=== PATIENT | female | born 1950 | race Caucasian/White ===

== ENCOUNTER 2023-01-30 16:50 | Inpatient (IN) | payer MEDICARE, SELFPAY ==
[2023-01-30] VITALS (13 sets, daily range): BP systolic 120–162; BP diastolic 64–96; PULSE 73–87; RESP 17–32; TEMP 36.6–37.1; O2SAT 95–99; BMI 16.6; BMI 16.0
--- NOTE | 2023-01-30 17:13 | XR_ITS ---
The [address] [address] Patient Name: LAQUITA CASTRO MRN: [id number] date: 1950 Sex: F Assigned Patient Location: ER Current Patient Location: ER Accession/Order Number: [id number] Exam Date: 01/30/2023 17:18 Report Date: 01/30/2023 17:51 At the request of: ARTHUR MARTINEZ Procedure: XR chest 1V XR chest 1V CLINICAL: Shortness of breath COMPARISON: No prior studies are available. TECHNIQUE: PA and lateral chest radiographs were obtained. FINDINGS: Heart size is slightly enlarged. There are patchy airspace infiltrates present in the left lower lung, with blunting at the lateral left costophrenic sulcus, and relatively hyperdense opacification in the left hilum relative to the right side. No discernible pneumothorax. Right lung is well aerated, with slight blunting lateral right costophrenic sulcus. Osseous structures appear intact. IMPRESSION: Patchy airspace infiltrates left mid to lower lung suspicious for pneumonia. The left pulmonary hilum is asymmetrically dense relative to the right. This may represent reactive adenopathy, however left hilar mass is not excluded. Consider chest CT to exclude left hilar mass. Suspect small pleural effusions, left greater than right. Electronically authenticated by: ANAYELI LOBATO Date: 01/30/2023 17:51
--- NOTE | 2023-01-30 17:13 | ECG_ITS ---
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
--- NOTE | 2023-01-30 17:13 | PC.NURSE ---
pt presents to ED c/o SOB. pt states she has chronic sob d/t copd and wears 2 liters nasal cannula at all times. on arrival pt is on 3 liters and states she bumped it up d/t sob. pt also c/o cough and increased mucus as well as coughing up blood. also c/o fatigue and weakness and unable to eat or drink anything.
--- NOTE | 2023-01-30 17:17 | ED_ITS ---
HPI - SOB/Dyspnea General Chief Complaint: Shortness of Breath/Dyspnea Stated Complaint: Shortness of Breath, Coughing up blood Time Seen by Provider: 01/30/23 16:53 Source: family Mode of arrival: Wheelchair Limitations: no limitations History of Present Illness HPI Narrative: 72-year-old female who has chronic obstructive pulmonary disease and is on home oxygen presents for a week and a half history of weakness and difficulty breathing. She's been coughing up blood. She's been feeling more weak than typical and has been able to get up and walk around. Family increased her oxygen from 2 L to 3 L/m by nasal cannula last night. She has not had a known fever. States she quit smoking in 2014. Related Data Home Medications Medication Instructions Recorded Confirmed acetylcysteine 600 mg tablet (NAC) 600 mg PO DAILY 01/30/23 01/30/23 albuterol sulfate 90 mcg/actuation 2 puff inhalation Q6H PRN 01/30/23 01/30/23 aerosol inhaler shortness of breath or wheezing carvedilol 3.125 mg tablet 3.125 mg PO Q12H 01/30/23 01/30/23 diltiazem HCl 240 mg capsule,24 240 mg PO Q24H 01/30/23 01/30/23 hr,extended release folic acid 1 mg tablet 1 mg PO DAILY 01/30/23 01/30/23 glipizide 2.5 mg tablet, extended 2.5 mg PO DAILY 01/30/23 01/30/23 release 24 hr hydroxychloroquine 200 mg tablet 200 mg PO DAILY 01/30/23 01/30/23 losartan 50 mg tablet 50 mg PO DAILY 01/30/23 01/30/23 methotrexate sodium 2.5 mg tablet 15 mg PO .weekly 01/30/23 01/30/23 prasugrel 10 mg tablet 10 mg PO DAILY 01/30/23 01/30/23 prednisone 5 mg tablet 5 mg PO DAILY 01/30/23 01/30/23 rosuvastatin 20 mg tablet 20 mg PO DAILY 01/30/23 01/30/23 tiotropium bromide 2.5 2 puff inhalation Q24H 01/30/23 01/30/23 mcg/actuation mist for inhalation (Spiriva Respimat) tramadol 50 mg tablet 50 mg PO Q4H PRN pain 01/30/23 01/30/23 Allergies Allergy/AdvReac Type Severity Reaction Status Date / Time No Known Drug Allergies Allergy Verified 01/30/23 16:57 Review of Systems ROS Narrative A ten point review of systems is negative except as noted above. PFSH PFSH Social History Smoking status: Former smoker Exam Narrative Exam Narrative: Nurses note and vital signs reviewed and patient is not hypoxic. General: this to minutes of patient appears uncomfortable. She appears mildly dyspneic. She appears generally weak. Skin: Warm, dry, no pallor noted. There is no rash noted. Head: Normocephalic, atraumatic Eye: Normal conjunctiva, no drainage Ears, Nose, Mouth, and Throat: oral mucosa is moist. Nares patent. Cardiovascular: Regular Rate and Rhythm, not tachycardic Respiratory: she has difficulty taking in deep breaths. Breath sounds are equal. She has rhonchi. Back: non-tender GI: nontender Musculoskeletal: The patient has no evidence of calf tenderness, no pitting edema, symmetrical pulses noted bilaterally Neurological: A&O, normal speech Psychiatric: Cooperative Constitutional Vital Signs, click to edit/add: Last Vital Signs Temp 97.8 F 01/30/23 16:58 Pulse 73 01/30/23 18:02 Resp 32 H 01/30/23 16:58 BP 151/74 H 01/30/23 16:58 Pulse Ox 97 01/30/23 18:02 O2 Del Method Nasal Cannula 01/30/23 17:36 O2 Flow Rate 3 01/30/23 17:36 Course Vital Signs Vital signs: Vital Signs Temperature 97.8 F 01/30/23 16:58 Pulse Rate 76 01/30/23 16:58 Respiratory Rate 32 H 01/30/23 16:58 Blood Pressure 151/74 H 01/30/23 16:58 Pulse Oximetry 95 01/30/23 16:58 Oxygen Delivery Method Nasal Cannula 01/30/23 16:58 Oxygen Delivery Flow Rate 3 01/30/23 16:58 Temperature 97.8 F 01/30/23 16:58 Pulse Rate 73 01/30/23 18:02 Respiratory Rate 32 H 01/30/23 16:58 Blood Pressure 151/74 H 01/30/23 16:58 Pulse Oximetry 97 01/30/23 18:02 Oxygen Delivery Method Nasal Cannula 01/30/23 17:36 Oxygen Delivery Flow Rate 3 01/30/23 17:36 MDM - SOB/Dyspnea MDM Narrative Medical decision making narrative: pneumonia is identified. Blood cultures were obtained and then she was given IV antibiotic. She was also given IV steroids and aerosol treatments. She is being admitted. Differential Diagnosis Differential diagnosis: Likely acute exacerbation of chronic obstructive airways disease, congestive heart failure and community acquired pneumonia Lab Data Attestation: I reviewed the patient's lab results. Labs: Lab Results 01/30/23 01/30/23 Range/Units 17:05 17:40 WBC 13.1 H (4.0-11.0) 10^3/uL RBC 3.06 L (4.20-5.40) 10^6/uL Hgb 8.6 L (12.0-16.0) g/dL Hct 29.0 L (36.0-48.0) % MCV 94.8 (81.0-99.0) fL MCH 28.1 (26.7-34.0) pg MCHC 29.7 L (29.9-35.2) g/dL RDW 15.9 H (11.0-15.0) % Plt Count 483 H (150-450) 10^3/uL MPV 9.5 (9.5-13.5) fL Neut % (Auto) 89.3 H (43.0-75.0) % Lymph % (Auto) 1.9 L (20.5-60.0) % [place] % (Auto) 7.6 (1.7-12.0) % Eos % (Auto) 0.1 L (0.9-7.0) % Baso % (Auto) 0.1 L (0.2-2.0) % Neut # (Auto) 11.7 H (1.4-6.5) 10^3/uL Lymph # (Auto) 0.3 L (1.2-3.8) 10^3/uL [place] # (Auto) 1.0 H (0.3-0.8) 10^3/uL Eos # (Auto) 0.0 (0.0-0.7) 10^3/uL Baso # (Auto) 0.0 (0.0-0.1) 10^3/uL Abs Immat Gran (auto) 0.13 H (0.00-0.03) 10^3/uL Imm/Tot Granulo (auto) 1.0 H (0.0-0.5) % Sodium 135 L (136-145) mmol/L Potassium 4.6 (3.5-5.1) mmol/L Chloride 96 L (98-107) mmol/L Carbon Dioxide 37.7 H (21.0-32.0) mmol/L Anion Gap 5.9 BUN 25.0 H (7.0-18.0) mg/dL Creatinine 0.95 (0.55-1.02) mg/dL Est GFR ( Amer) >60 (>=60) Est GFR (Non-Af Amer) 58 L (>=60) BUN/Creatinine Ratio 26.3 Glucose 135 H (74-106) mg/dL Calcium 9.1 (8.5-10.1) mg/dL Urine Color Yellow (YELLOW) Urine Clarity Clear (CLEAR) Urine pH 5.5 (5.0-9.0) Ur Specific [place] >=1.030 A (1.005-1.025) Urine Protein >=300 A (NEG/TRACE) mg/dL Urine Glucose (UA) Negative (NEGATIVE) mg/dL Urine Ketones Trace A (NEGATIVE) mg/dL Urine Occult Blood Small A (NEGATIVE) Urine Nitrite Negative (NEGATIVE) Urine Bilirubin Small A (NEGATIVE) Urine Urobilinogen 0.2 (0.2-1.0) EU/dL Ur Leukocyte Esterase Negative (NEGATIVE) ECG Data Attestation: I personally reviewed and interpreted this ECG as follows: (EKG on my interpretation shows sinus rhythm with rate of 73. no acute changes) Critical Care Time Critical Care Time Critical Care Time: Yes Total Critical Care Time: 30 Attestation: due to the high probability of sudden and significant clinical deterioration critical care time was necessary. Discharge Plan Discharge Chief Complaint: Shortness of Breath/Dyspnea Clinical Impression: Pneumonia due to organism Patient Disposition: Admitted As Inpatient Time of Disposition Decision: 18:21 Condition: Fair Prescriptions / Home Meds: No Action albuterol sulfate 90 mcg/actuation HFA aerosol inhaler 2 puff INHALATION Q6H PRN (Reason: shortness of breath or wheezing) diltiazem HCl 240 mg capsule,extended release 24 hr 240 mg PO Q24H folic acid 1 mg tablet 1 mg PO DAILY carvedilol 3.125 mg tablet 3.125 mg PO Q12H glipizide 2.5 mg tablet extended release 24hr 2.5 mg PO DAILY losartan 50 mg tablet 50 mg PO DAILY hydroxychloroquine 200 mg tablet 200 mg PO DAILY methotrexate sodium 2.5 mg tablet 15 mg PO .weekly prasugrel 10 mg tablet 10 mg PO DAILY prednisone 5 mg tablet 5 mg PO DAILY rosuvastatin 20 mg tablet 20 mg PO DAILY Spiriva Respimat 2.5 mcg/actuation mist 2 puff INHALATION Q24H tramadol 50 mg tablet 50 mg PO Q4H PRN (Reason: pain) NAC 600 mg tablet 600 mg PO DAILY Referrals: Physician,Non-Staff, MD [Primary Care Provider] - 1 week
[2023-01-30 17:24] LABS: Basophils Percent Auto 0.1 % (0.2-2.0); Eosinophils Percent Auto 0.1 % (0.9-7.0); Hemoglobin 8.6 g/dL (12.0-16.0); Immature Granulocytes Abs Auto 0.13 10^3/uL (0.00-0.03); Lymphocytes Absolute Auto 0.3 10^3/uL (1.2-3.8); Lymphocytes Percent Auto 1.9 % (20.5-60.0); Mean Corpuscular HGB Conc 29.7 g/dL (29.9-35.2); Mean Corpuscular Hemoglobin 28.1 pg (26.7-34.0); Mean Corpuscular Volume 94.8 fL (81.0-99.0); Mean Platelet Volume 9.5 fL (9.5-13.5); Monocytes Percent Auto 7.6 % (1.7-12.0); Neutrophils Absolute Auto 11.7 10^3/uL (1.4-6.5); Neutrophils Percent Auto 89.3 % (43.0-75.0); Platelet Count 483 10^3/uL (150-450); Red Blood Count 3.06 10^6/uL (4.20-5.40); Red Cell Distribution Width 15.9 % (11.0-15.0); White Blood Count 13.1 10^3/uL (4.0-11.0)
[2023-01-30 17:34] LABS: Anion Gap 5.9; BUN Creatinine Ratio 26.3; Calcium 9.1 mg/dL (8.5-10.1); Carbon Dioxide 37.7 mmol/L (21.0-32.0); Chloride 96 mmol/L (98-107); Estimated GFR (African America >60 (>=60); Estimated GFR (Non-African Ame 58 (>=60); Glucose 135 mg/dL (74-106); Potassium 4.6 mmol/L (3.5-5.1); Sodium 135 mmol/L (136-145)
[2023-01-30] MEDS: ALBUTEROL SULFATE 2.5 MG/3 ML VIAL NEB IH ×2 (18:02→23:09)
[2023-01-30] MEDS: METHYLPREDNISOLONE SOD SUCC PF 125 MG/2 ML VIAL IVP (18:04)
[2023-01-30 18:08] LABS: Bilirubin Urine SMALL (NEGATIVE); Blood Urine SMALL (NEGATIVE); Clarity Urine CLEAR (CLEAR); Color Urine YELLOW (YELLOW); Glucose Urine UA NEGATIVE (NEGATIVE); Ketones Urine TRACE mg/dL (NEGATIVE); Leukocyte Esterase Urine NEGATIVE (NEGATIVE); Nitrite Urine NEGATIVE (NEGATIVE); Protein Urine >=300 mg/dL (NEG/TRACE); Specific Gravity Urine >=1.030 (1.005-1.025); Urobilinogen Urine 0.2 EU/dL (0.2-1.0); pH Urine 5.5 (5.0-9.0)
[2023-01-30 18:10] LABS: Urine Microscopic Indicated YES
[2023-01-30] MEDS: AZITHROMYCIN 500 MG in 0.9 % SODIUM CHLORIDE 250 ML 250 MG IV (18:22)
[2023-01-30] MEDS: CEFTRIAXONE 1,000 MG in 0.9 % SODIUM CHLORIDE 50 ML 100 MG IV (18:22)
--- NOTE | 2023-01-30 18:26 | CT_ITS ---
The [address] [address] Patient Name: LAQUITA CASTRO MRN: [id number] date: 1950 Sex: F Assigned Patient Location: MS Current Patient Location: Accession/Order Number: [id number] Exam Date: 01/30/2023 19:07 Report Date: 01/30/2023 20:14 At the request of: ARTHUR MARTINEZ Procedure: CT angio chest CT ANGIOGRAM THORACIC AORTA: INDICATION: Abnormal chest x-ray. COMPARISON: Chest x-ray 01/30/2023. TECHNIQUE: Helical CT angiography was performed of the chest after the administration of intravenous contrast. MIP (maximum intensity projection) images were performed. Dose reduction techniques were achieved by using automated exposure control and/or adjustment of mA and/or kV according to patient size and/or use of iterative reconstruction technique. FINDINGS: PULMONARY ARTERIES: Satisfactory opacification. No evidence of pulmonary embolism. THORACIC AORTA: Diffuse atherosclerotic calcification of the thoracic aorta which is normal in caliber. There is a prominent outpouching off the inferior aspect of the aortic arch. The aorta overall measures approximately 3 cm in craniocaudal dimension at this level. This is suggestive of a ductus diverticulum aneurysm. HEART/PERICARDIUM: Reflux of contrast in the IVC and hepatic veins suggestive of elevated right heart pressures. Moderate to severe atherosclerotic coronary artery calcification. MEDIASTINAL/HILAR LYMPH NODES: No lymphadenopathy. ESOPHAGUS: Normal as visualized. PLEURAL CAVITY: No pleural effusion or pneumothorax. LUNGS/AIRWAYS: Moderate to severe emphysema. Bronchial wall thickening is also noted consistent with bronchitis and/or asthma. There is extensive cylindrical bronchiectasis as well as some varicoid bronchiectasis predominantly in the right middle lobe and the bilateral lower lobes. There is mucous plugging also seen within the right middle lobe and the bilateral lower lobes. There is a large focal consolidation in the left lower lobe in the superior segment which corresponds to the radiographic finding and there is a moderate focus of consolidation in the lingula. Within these consolidations there are rounded areas of relatively low attenuation suspicious for necrotizing pneumonia. 2 mm nodular density at the right lung apex. CHEST WALL/AXILLA/LOWER NECK: Normal. VISUALIZED UPPER ABDOMEN: 1.2 x 0.6 cm cystic lesion in the tail of the pancreas. Additional 6 mm cystic lesion. The pancreas appears atrophic. Large bilateral renal cysts measuring up to 6 x 4.8 cm in the left kidney. BONES: Mild multilevel degenerative changes of the thoracic spine. Moderate kyphosis of the upper thoracic spine. Mild compression fractures at T12, T7, T5, T4 and T2 which are age indeterminate although favored to be chronic. The bones appear osteopenic. Mild dextroscoliosis. IMPRESSION: 1. No evidence of pulmonary embolism. 2. Extensive consolidation in the left lower lobe and lingula consistent with pneumonia with areas of low attenuation suspicious for necrotizing pneumonia. Recommend short-term follow-up after treatment to ensure resolution. 3. Bronchial wall thickening consistent with bronchitis or asthma and extensive emphysema. 4. Extensive bronchiectasis particularly in the right middle lobe and the bilateral lower lobes with multiple areas of mucous plugging. 5. 2 mm nonspecific nodular density at the right lung apex. Recommend attention on follow-up. 6. Findings consistent with a ductus diverticulum aneurysm in the aortic arch measuring up to 3 cm. 7. Multiple age-indeterminate but likely chronic compression fractures in the thoracic spine. 8. Reflux of contrast material into the IVC and hepatic veins suggestive of elevated right heart pressures. 9. Bilateral renal cysts. 10. Small cystic lesions of the pancreas. Recommend follow-up MRI or CT in 2 years. Electronically authenticated by: JONATHON PABLO Date: 01/30/2023 20:14
[2023-01-30 18:46] LABS: Cast Seen? SEEN #/LPF (NONE SEEN)
[2023-01-30 18:48] LABS: Fine Granular Casts Urine FEW; Hyaline Casts Urine FEW; Squamous Epithelial Cell Urine MODERATE #/LPF (NONE/RARE)
[2023-01-30 18:49] LABS: Bacteria Urine TRACE #/HPF (NONE SEEN); Crystals Seen? None Seen #/HPF (None Seen); Mucus Urine TRACE (NONE SEEN); RBC Urine 0-2 #/HPF (0-2); WBC Urine 0-2 #/HPF (NONE SEEN)
[2023-01-30 18:50] LABS: Urine Culture Indicated YES
[2023-01-30 18:55] LABS: SARS-CoV-2 Ag NEGATIVE (NEGATIVE)
[2023-01-30] MEDS: TRAMADOL HCL 50 MG TABLET PO (19:21)
[2023-01-31] VITALS (37 sets, daily range): BP systolic 122–153; BP diastolic 59–83; PULSE 72–100; RESP 12–109; TEMP 36.3–36.9; O2SAT 92–99
--- NOTE | 2023-01-31 00:03 | W.PM.TELEPN ---
Progress Note: Subjective Subjective Interval history: Pt is a 72F with PMH of RA since age 28's on multiple immunosuppressive drugs, COPD due to history of heavy smoking(quit in 2000), HTN, CKD stage III, Pre-Diabetes on Glipizide, who presented to the ED with complaint of shortness of breath and hemoptysis. She lives in [place] with her son and was in town visiting her other son Alec. She states that she has been experiencing symptoms of cough, chest pain, and shortness of breath for over a year and has lost 30lbs unintentionally over the past 3 years, with a 7 lb weight loss in the last week. The reason that she came to the ED was because her shortness of breath was acutely worsening and she developed new hemoptysis. Imaging in the ED ruled out PE, but showed LLL necrotizing pneumonia and signs concerning for possible underlying malignancy. Internal Medicine is consulted for admission. At the time of my exam, she reports ongoing chest pain and difficulty breathing. History is taken from patient and nurse assisting who had already obtained a significant amount of history from the patient and assisted with providing this information as the patient was experiencing too much respiratory distress to give much history. She cannot tell me how long she has been having this chest pain and cough, only that it has been present for a long time. She also complains of chronic pain in her back, hips, and knees. She states that her appetite is poor and she has not been eating much at home. She denies sick contacts, has recently traveled, no nausea or vomiting. The remainder of the review of systems is negative. Exam Narrative Exam Narrative: Constitutional: Moderate respiraotry distress. Frail. HEENT: No nasal discharge. NC/AT. +Bitemporal wasting noted Respiratory: +Use of accessory muscles, +Unable to speak in full sentences. +Scattered rhonchi. No wheezes. Cardiovascular: +S1, S2. No murmurs, rubs, or gallops. GI: Nontender Musculskeletal: CAMP, No cyanosis or edema Neuro: AAOx3, No focal deficits observed Psych: Anxious Constitutional Vital Signs, click to edit/add: Last Vital Signs Temp 98.8 F 01/30/23 22:15 Pulse 79 01/30/23 23:09 Resp 18 01/30/23 23:09 BP 154/64 H 01/30/23 22:15 Pulse Ox 99 01/30/23 23:09 O2 Del Method Nasal Cannula 01/30/23 23:09 O2 Flow Rate 3 01/30/23 23:09 Progress Note: Objective Labs Labs: Short CBC 01/30/23 Range/Units 17:05 WBC 13.1 H (4.0-11.0) 10^3/uL Hgb 8.6 L (12.0-16.0) g/dL Hct 29.0 L (36.0-48.0) % Plt Count 483 H (150-450) 10^3/uL BMP 01/30/23 17:05 Sodium 135 L Potassium 4.6 Chloride 96 L Carbon Dioxide 37.7 H BUN 25.0 H Creatinine 0.95 Glucose 135 H Calcium 9.1 Urine 01/30/23 Range/Units 17:40 Urine Color Yellow (YELLOW) Urine Clarity Clear (CLEAR) Urine pH 5.5 (5.0-9.0) Ur Specific [place] >=1.030 A (1.005-1.025) Urine Protein >=300 A (NEG/TRACE) mg/dL Urine Glucose (UA) Negative (NEGATIVE) mg/dL Imaging CT scan - chest: Attestation: I have reviewed the pertinent imaging results. Progress Note: A&P Assessment and Plan (1) Necrotizing pneumonia: (2) Hypoxia: (3) Congenital patent ductus arteriosus aneurysm: (4) Compression fracture: (5) Immunosuppressed status: Plan 1. Necrotizing LLL Pneumonia Gram negative infection suspected Continue Rocephin at 2g IV Daily Hold immunosuppressives in setting of acute illness (Methotrexate, Plaquenil, Prednisone) Guaifenesin PRN Sputum culture ordered Follow up result Consult to Operations And Maintenance Specialist in AM Patient follows with Pulm at home for COPD (in [place]) Concern for underlying malignancy May require biopsy 2. Hypoxia Pt with COPD Compliant with medications and follow up with Operations And Maintenance Specialist Continue oxygen support Downtitrate as tolerated Currently requiring 3L/min DuoNebs ordered Monitor response Consider Chest PT if unable to clear secretions adequately Bronchiectasis with mucus plugging of RML and B/L Lower lobes noted on CTA chest Pulmonology to be consulted in AM Consider bronch if pt fails to improve 3. 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 Faustina OTREGA after discharge 4. Compression Fractures Multiple chronic compression fractures of spine noted on CT Tylenol, Tramadol PRN PT/OT when stable 5. Hypertension STABLE Continue home regimen 6. Pre-DM At [place] Hold Glipizide while inpatient Place on CCD Diet Monitor glucose and adjust as needed 7. Rheumatoid Arthritis Hold Immunosuppressives while admitted due to acute infection Pain management as above 8. DVT ppx with Heparin Telemedicine Attestation Telemedicine Attestation I conducted this encounter from [[place]] via secure live, [id number] video conference with the patient, located at [facility] with [nurse]. Prior to the interview, the risks and benefits of telemedicine were discussed with the patient and verbal consent was obtained.
[2023-01-31] MEDS: TRAMADOL HCL 50 MG TABLET PO ×4 (00:58→19:53)
[2023-01-31] MEDS: IPRATROPIUM/ALBUTEROL SULFATE 3 ML AMPUL.NEB IH ×4 (04:47→22:19)
[2023-01-31 05:07] LABS: Basophils Absolute Auto 0.1 10^3/uL (0.0-0.1); Basophils Percent Auto 0.7 % (0.2-2.0); Hematocrit 25.1 % (36.0-48.0); Hemoglobin 7.5 g/dL (12.0-16.0); Immature Granulocytes Abs Auto 0.14 10^3/uL (0.00-0.03); Immature Granulocytes Pct Auto 0.8 % (0.0-0.5); Lymphocytes Absolute Auto 0.1 10^3/uL (1.2-3.8); Lymphocytes Percent Auto 0.7 % (20.5-60.0); Mean Corpuscular HGB Conc 29.9 g/dL (29.9-35.2); Mean Corpuscular Volume 93.7 fL (81.0-99.0); Mean Platelet Volume 9.4 fL (9.5-13.5); Monocytes Absolute Auto 0.4 10^3/uL (0.3-0.8); Monocytes Percent Auto 2.2 % (1.7-12.0); Neutrophils Absolute Auto 15.9 10^3/uL (1.4-6.5); Neutrophils Percent Auto 95.6 % (43.0-75.0); Platelet Count 499 10^3/uL (150-450); Red Blood Count 2.68 10^6/uL (4.20-5.40); White Blood Count 16.6 10^3/uL (4.0-11.0)
[2023-01-31 05:40] LABS: Alanine Aminotransferase 16 U/L (14-59); Albumin Globulin Ratio 0.3; Albumin Level 1.5 g/dL (3.4-5.0); Alkaline Phosphatase 57 U/L (46-116); Anion Gap 10.7; Aspartate Amino Transferase 11 U/L (15-37); BUN Creatinine Ratio 27.7; Bilirubin Total 0.2 mg/dL (0.2-1.0); Calcium 8.5 mg/dL (8.5-10.1); Carbon Dioxide 32.8 mmol/L (21.0-32.0); Chloride 96 mmol/L (98-107); Estimated GFR (African America >60 (>=60); Estimated GFR (Non-African Ame 54 (>=60); Globulin 4.4 g/dL; Glucose 107 mg/dL (74-106); Magnesium 1.9 mg/dL (1.8-2.4); Phosphorus 5.5 mg/dL (2.6-4.7); Potassium 4.5 mmol/L (3.5-5.1); Sodium 135 mmol/L (136-145); Total Protein 5.9 g/dL (6.4-8.2)
--- NOTE | 2023-01-31 07:39 | CA_ITS ---
Patient Name Site Name LAQUITA CASTRO The [facility] Account No Medical Record Number Age Sex Date Time [id number] [facility]:[id number] F 02/01/2023 10:17 At the Request Of Francisco Javier Owen ECHOCARDIOGRAM REPORT PROCEDURE: CA ECHO DOPPLER COMPLETE INDICATIONS: aortic root aneurysm (PDA), COPD, hypertension, diabetes COMPARISON: None. DESCRIPTION: COMPLETE ECHOCARDIOGRAM Real-time transthoracic echocardiography with 2D, M-mode, spectral and color flow Doppler performed. QUALITY: Technical quality was good. LEFT VENTRICLE: Normal chamber size. Proximal septal hypertrophy (sigmoid septum). Normal systolic function. LV EF: Normal left ventricular ejection fraction, (>55%). DIASTOLIC: Diastolic function is indeterminate. ATRIAL SEPTUM: Visually appears intact. LEFT ATRIUM: Normal chamber size. RIGHT ATRIUM: Normal chamber size. RIGHT VENTRICLE: Normal chamber size. Normal right ventricular systolic function. TRICUSPID VALVE: Normal mobility and thickness. No stenosis with mild regurgitation. Doppler studies reveal mildly (35-45) elevated right sided pressures. RVSP 35 mmHg MITRAL VALVE: Normal mobility and thickness. No evidence of mitral valve stenosis. Mild mitral annular calcification. Mild mitral regurgitation. AORTIC VALVE: Normal trileaflet appearance. No visible sclerosis. Normal leaflet mobility. No evidence of aortic valve stenosis. No aortic regurgitation. AORTIC ROOT: Normal diameter and appearance. Unable to adequately assess aortic arch. PULMONIC VALVE: Normal thickness and mobility. No stenosis. No regurgitation. PERICARDIUM: No evidence of pericardial effusion. IVC: Collapses with inspirations. PLEURA: CONCLUSION: 1. Normal ventricular systolic function. LVEF is 55 to 60%. 2. Mild mitral and tricuspid regurgitation. 3. Mildly elevated right-sided pressures. 4. Aortic root is normal in size. The arch and descending aorta are not visualized. 5. No pericardial effusion. 6. No evidence of aortic root aneurysm seen on this study. A different imaging modality such as CT scan is recommended for better assessment. Adult Echocardiography Procedure Report Left Ventricle LVEDD (3.7 - 5.6 cm): 3.61 cm LVESD (2.2 - 4.0 cm): 2.47 cm LVIVS thickness (0.6 - 1.2 cm): 1.28 cm LVPW thickness (0.5 - 1.0 cm): 0.87 cm e': 0.08 m/s E - e': 9.48 LVOT Max Gradient: 2.32 mm[Hg] LVOT Area (cm2): 0.76 m/s Peak Velocity (LVOT): 0.76 m/s LVOT Diameter 2.12 cm Left Atrium LA Volume Index (2D A2C): 34.97 ml/m2 Left Atrium Systolic Dimension: 2.23 cm Mitral Valve MV E to A Ratio: 0.77, 0.68 Mitral Valve A-Wave Peak Velocity: 1.01 m/s Mitral Valve E-Wave Peak Velocity: 0.74 m/s Right Ventricle Aorta AO Root Diam: 3.20 cm Aortic Valve AoV Area (Peak Mynor): 2.28 cm2, 2.28 cm2 Peak Velocity(Antegrade Flow): 1.18 m/s Peak Gradient(Antegrade Flow): 5.58 mm[Hg] Mean Velocity(Antegrade Flow): 0.71 m/s Mean Gradient(Antegrade Flow): 2.30 mm[Hg] Velocity Time Integral: 25.65 cm Tricuspid Valve Peak Velocity (Regurgitant Flow): 2.81 m/s Pulmonic Valve Peak Velocity: 0.85 m/s Peak Gradient: 2.72 mm[Hg], 3.01 mm[Hg] Right Atrium Right Atrium Systolic Pressure: 24.36 ml, 24.36 ml Dictated by: Car Pablo M.D. on 02/01/2023 at 17:46 Approved by: aCr Pablo M.D. on 02/01/2023 at 17:55
[2023-01-31 08:03] LABS: Alanine Aminotransferase 18 U/L (14-59); Albumin Globulin Ratio 0.3; Albumin Level 1.5 g/dL (3.4-5.0); Alkaline Phosphatase 61 U/L (46-116); Aspartate Amino Transferase 17 U/L (15-37); Bilirubin Direct 0.1 mg/dL (0.0-0.2); Bilirubin Total 0.2 mg/dL (0.2-1.0); Globulin 4.4 g/dL; Magnesium 1.9 mg/dL (1.8-2.4); Total Protein 5.9 g/dL (6.4-8.2)
[2023-01-31 08:19] LABS: Glucometer 140 mg/dL (74-106)
[2023-01-31] MEDS: PRASUGREL HCL 10 MG TABLET PO (08:24)
[2023-01-31] MEDS: FOLIC ACID 1 MG TABLET PO (08:24)
[2023-01-31] MEDS: GLIPIZIDE 5 MG TABLET 2.5 MG PO (08:24)
[2023-01-31] MEDS: DILTIAZEM HCL 240 MG CAP.ER.24H PO (08:24)
[2023-01-31] MEDS: HEPARIN SODIUM (PORCINE) 5,000 UNIT/ML VIAL 5000 UNIT SUBQ ×2 (08:24→15:36)
[2023-01-31] MEDS: METHYLPREDNISOLONE SOD SUCC PF 40 MG/ML VIAL 60 MG IVP ×3 (08:24→22:01)
[2023-01-31] MEDS: LOSARTAN POTASSIUM 50 MG TABLET PO (08:24)
[2023-01-31] MEDS: HYDROXYCHLOROQUINE SULFATE 200 MG TABLET PO (08:25)
[2023-01-31] MEDS: ENSURE HP 237 ML LIQUID PO (08:25)
[2023-01-31] MEDS: CARVEDILOL 3.125 MG TABLET PO (08:25)
[2023-01-31] MEDS: PIPERACILLIN SODIUM/TAZOBACTAM 3.375 GM in 0.9 % SODIUM CHLORIDE 50 ML IV ×2 (08:32→16:17)
--- NOTE | 2023-01-31 10:17 | P.HP_ITS ---
H&P: HPI History of Present Illness Chief complaint: PNUMONIA COPD EXACERBATION Narrative: Pt admitted to ICU from ER with increasing dyspnea - Found to have LLL pneumonia, acute exacerbation copd wiht dehydration. Admitte to ICU due to the severity of her symptoms. Review of Systems ROS Constitutional Denies: fever or chills Ears, nose, mouth, and throat Denies: throat pain Cardiovascular Reports: palpitations; Denies: chest pain Respiratory Reports: shortness of breath, cough, wheezing and coughing up blood Gastrointestinal Reports: nausea and heartburn Neurological Denies: headache or slurred speech Psychiatric Denies: anxiety [facility] Medical History (Updated 01/31/23 @ 00:29 by Michelle Irving MD) Surgical History (Updated 01/30/23 @ 23:07 by Spencer Hayes) Family History (Updated 01/30/23 @ 23:09 by Spencer Hayes) Father Family history of diabetes mellitus Family history of hypertension Family history of myocardial infarction Blood clot in leg Mother Family history of myocardial infarction Social History (Updated 01/30/23 @ 23:12 by Spencer Hayes) Within the past year, how often did you have a drink containing alcohol: never Score interpretation: A score less than 3 is consistent with normal alcohol consumption. Smoking status: Former smoker Second hand tobacco smoke exposure: No Non-prescribed substance use: denies use Known occupational exposures/hazards: No Highest level of school completed/degree received: high school graduate Are you now , , , , never or living with a partner: In a typical week, how many times do you talk on the telephone with family, friends, or neighbors: 3 or more times per week How often do you get together with friends or relatives: 3 or more times per week How often do you attend yazidi or nondenominational services: never Do you belong to any clubs or organizations such as yazidi groups unions, fraternal or athletic groups, or school groups: no Total score: 1 Score interpretation: A score of less than or equal to 1 indicates the most socially isolated. Little interest or pleasure in doing things: several days Feeling down, depressed, or hopeless: several days Feel stressed/tense/nervous/anxious/difficulty sleeping: only a little Due to disability, difficulty making decisions: No Do you think of yourself as: decline to answer Gender Identity: female Meds Home Medications and Allergies Home Medications Medication Instructions Recorded Confirmed Type acetylcysteine 600 mg tablet (NAC) 600 mg PO DAILY 01/30/23 01/30/23 History albuterol sulfate 90 mcg/actuation 2 puff inhalation Q6H PRN 01/30/23 01/30/23 History aerosol inhaler shortness of breath or wheezing carvedilol 3.125 mg tablet 3.125 mg PO Q12H 01/30/23 01/30/23 History diltiazem HCl 240 mg capsule,24 240 mg PO Q24H 01/30/23 01/30/23 History hr,extended release folic acid 1 mg tablet 1 mg PO DAILY 01/30/23 01/30/23 History glipizide 2.5 mg tablet, extended 2.5 mg PO DAILY 01/30/23 01/30/23 History release 24 hr hydroxychloroquine 200 mg tablet 200 mg PO DAILY 01/30/23 01/30/23 History losartan 50 mg tablet 50 mg PO DAILY 01/30/23 01/30/23 History methotrexate sodium 2.5 mg tablet 15 mg PO .weekly 01/30/23 01/30/23 History prasugrel 10 mg tablet 10 mg PO DAILY 01/30/23 01/30/23 History prednisone 5 mg tablet 5 mg PO DAILY 01/30/23 01/30/23 History rosuvastatin 20 mg tablet 20 mg PO DAILY 01/30/23 01/30/23 History tiotropium bromide 2.5 2 puff inhalation Q24H 01/30/23 01/30/23 History mcg/actuation mist for inhalation (Spiriva Respimat) tramadol 50 mg tablet 50 mg PO Q4H PRN pain 01/30/23 01/30/23 History Allergies Allergy/AdvReac Type Severity Reaction Status Date / Time No Known Drug Allergies Allergy Verified 01/30/23 16:57 Exam Constitutional Vital Signs, click to edit/add: Last Vital Signs Temp 97.4 F L 01/31/23 07:50 Pulse 98 H 01/31/23 09:00 Resp 20 01/31/23 07:28 BP 149/83 H 01/31/23 07:28 Pulse Ox 97 01/31/23 07:28 O2 Del Method Nasal Cannula 01/31/23 07:50 O2 Flow Rate 2 01/31/23 07:50 Common normals: apparent distress and negative for healthy appearing General appearance: not comfortable Nutritional appearance: cachectic and underweight HENMT Common normals: normocephalic Chest Common normals: inspection of chest normal Respiratory Common normals: abnormal respiratory effort Effort & inspection: symmetric chest movement Auscultation: rhonchi and diminished lung sounds Cardio Common normals: regular rate and regular rhythm Neuro Sensorium/orientation: awake, alert and lethargic Results Labs Labs: Short CBC 01/30/23 01/30/23 Range/Units 04:00 17:05 WBC 16.6 H 13.1 H (4.0-11.0) 10^3/uL Hgb 7.5 L 8.6 L (12.0-16.0) g/dL Hct 25.1 L 29.0 L (36.0-48.0) % Plt Count 499 H 483 H (150-450) 10^3/uL BMP 01/30/23 01/30/23 04:00 17:05 Sodium 135 L 135 L Potassium 4.5 4.6 Chloride 96 L 96 L Carbon Dioxide 32.8 H 37.7 H BUN 28.0 H 25.0 H Creatinine 1.01 0.95 Glucose 107 H 135 H Calcium 8.5 9.1 Liver Function 01/30/23 01/31/23 Range/Units 04:00 04:00 Total Bilirubin 0.2 0.2 (0.2-1.0) mg/dL Direct Bilirubin 0.1 (0.0-0.2) mg/dL AST 11 L 17 (15-37) U/L ALT 16 18 (14-59) U/L Alkaline Phosphatase 57 61 (46-116) U/L Albumin 1.5 L 1.5 L (3.4-5.0) g/dL Urine 01/30/23 Range/Units 17:40 Urine Color Yellow (YELLOW) Urine Clarity Clear (CLEAR) Urine pH 5.5 (5.0-9.0) Ur Specific [place] >=1.030 A (1.005-1.025) Urine Protein >=300 A (NEG/TRACE) mg/dL Urine Glucose (UA) Negative (NEGATIVE) mg/dL Assessment and Plan Assessment and Plan (1) Necrotizing pneumonia: (2) Hypoxia: (3) Congenital patent ductus arteriosus aneurysm: (4) Compression fracture: (5) Immunosuppressed status: (6) Pneumonia due to organism: (7) Diabetes mellitus: (8) Hypertension: (9) Rheumatoid arthritis: Plan Respiratory distress, uncontrolled hypertension, leukocytosis, thrombocythemia, acute hypoxic respiratory failures with acute exacerbation of oxygen dependent COPD secondary to left lower lobe pneumonia, resulting in dehydration with severe sepsis.? IV antibiotics, sputum culture, aerosols, consult to pulmonology, CT scan concerning for malignancy - Pt visiting up from [place] for the month Anemia - possible acute - serial labs, check occ blood Thrombocythemia - not critical - likely due to the above - monitor Aortic Root Ductus Aneurysm - 3cm - check echo to seeif can track size - co nsider consult to cardiology Dehydration with elevated b/c - - cont with IV fluids Hyponatremia - Improved - monitor Hyperphosphatemia - check levels in am Sever hypoalbumiemia - protein supplement Pancreatic cyst - check ca 19-[address] Diabetes - [address] on ISS Thoracic spine compression Fx - may need MRI to eval acuteness - with concern for malignancy - possible mets
[2023-01-31] MEDS: PANTOPRAZOLE SODIUM 40 MG VIAL IV (11:58)
[2023-01-31] MEDS: INSULIN ASPART 300 UNIT/3 ML PEN SUBQ (11:58)
[2023-01-31] MEDS: LEVOFLOXACIN IN DEXTROSE 5 % 750 MG/150 ML PIGGYBACK IV (13:27)
[2023-01-31 13:38] LABS: A. calcoaceticus-baumannii Cpx NOT DETECTED (NOT DETECTE); Bacteroides fragilis NOT DETECTED (NOT DETECTE); Candida albicans NOT DETECTED (NOT DETECTE); Candida auris NOT DETECTED (NOT DETECTE); Candida glabrata NOT DETECTED (NOT DETECTE); Candida krusei NOT DETECTED (NOT DETECTE); Candida parapsilosis NOT DETECTED (NOT DETECTE); Candida tropicalis NOT DETECTED (NOT DETECTE); Cryptococcus neoformans/gattii NOT DETECTED (NOT DETECTE); Enterobacter cloacae complex NOT DETECTED (NOT DETECTE); Enterobacterales NOT DETECTED (NOT DETECTE); Enterococcus faecalis NOT DETECTED (NOT DETECTE); Enterococcus faecium NOT DETECTED (NOT DETECTE); Haemophilus influenzae NOT DETECTED (NOT DETECTE); Klebsiella aerogenes NOT DETECTED (NOT DETECTE); Klebsiella pneumoniae group NOT DETECTED (NOT DETECTE); Listeria monocytogenes NOT DETECTED (NOT DETECTE); Neisseria meningitidis NOT DETECTED (NOT DETECTE); Proteus spp. NOT DETECTED (NOT DETECTE); Pseudomonas aeruginosa NOT DETECTED (NOT DETECTE); Salmonella spp. NOT DETECTED (NOT DETECTE); Serratia marcescens NOT DETECTED (NOT DETECTE); Staphylococcus lugdunensis NOT DETECTED (NOT DETECTE); Stenotrophomonas maltophilia NOT DETECTED (NOT DETECTE); Streptococcus agalactiae NOT DETECTED (NOT DETECTE); Streptococcus pneumoniae NOT DETECTED (NOT DETECTE); Streptococcus pyogenes NOT DETECTED (NOT DETECTE); Streptococcus spp. NOT DETECTED (NOT DETECTE)
[2023-01-31 14:56] LABS: mecA/C DETECTED (NOT DETECTE)
[2023-01-31 14:57] LABS: Staphylococcus epidermidis DETECTED (NOT DETECTE); Staphylococcus spp. DETECTED (NOT DETECTE)
[2023-01-31 15:21] LABS: SARS-CoV-2 NAA NOT DETECTED (NOT DETECTE)
[2023-01-31 16:13] LABS: Glucometer 230 mg/dL (74-106)
[2023-01-31 16:24] LABS: Glucometer 134 mg/dL (74-106)
[2023-01-31] MEDS: ATORVASTATIN CALCIUM 40 MG TABLET PO (19:53)
[2023-01-31 22:13] LABS: Glucometer 82 mg/dL (74-106)
[2023-02-01] VITALS (43 sets, daily range): BP systolic 129–166; BP diastolic 58–88; PULSE 69–91; RESP 0–28; TEMP 36.3–36.6; O2SAT 86–100; BMI 16.0
[2023-02-01] MEDS: PIPERACILLIN SODIUM/TAZOBACTAM 3.375 GM in 0.9 % SODIUM CHLORIDE 50 ML IV ×3 (01:09→18:36)
[2023-02-01] MEDS: TRAMADOL HCL 50 MG TABLET PO ×3 (03:38→21:13)
[2023-02-01] MEDS: METHYLPREDNISOLONE SOD SUCC PF 40 MG/ML VIAL 60 MG IVP ×4 (03:38→21:24)
[2023-02-01] MEDS: IPRATROPIUM/ALBUTEROL SULFATE 3 ML AMPUL.NEB IH ×4 (04:44→21:38)
[2023-02-01 04:58] LABS: Basophils Absolute Auto 0.1 10^3/uL (0.0-0.1); Basophils Percent Auto 0.4 % (0.2-2.0); Immature Granulocytes Abs Auto 0.12 10^3/uL (0.00-0.03); Immature Granulocytes Pct Auto 0.8 % (0.0-0.5); Lymphocytes Absolute Auto 0.2 10^3/uL (1.2-3.8); Lymphocytes Percent Auto 1.4 % (20.5-60.0); Mean Corpuscular Hemoglobin 27.8 pg (26.7-34.0); Mean Corpuscular Volume 92.7 fL (81.0-99.0); Mean Platelet Volume 9.1 fL (9.5-13.5); Monocytes Absolute Auto 0.4 10^3/uL (0.3-0.8); Monocytes Percent Auto 2.7 % (1.7-12.0); Neutrophils Absolute Auto 13.9 10^3/uL (1.4-6.5); Neutrophils Percent Auto 94.7 % (43.0-75.0); Platelet Count 473 10^3/uL (150-450); Red Blood Count 2.48 10^6/uL (4.20-5.40); Red Cell Distribution Width 16.3 % (11.0-15.0); White Blood Count 14.7 10^3/uL (4.0-11.0)
[2023-02-01 05:18] LABS: Hemoglobin 6.9 g/dL (12.0-16.0)
[2023-02-01 05:25] LABS: Alanine Aminotransferase 19 U/L (14-59); Albumin Globulin Ratio 0.4; Albumin Level 1.5 g/dL (3.4-5.0); Alkaline Phosphatase 53 U/L (46-116); Anion Gap 7.5; Aspartate Amino Transferase 19 U/L (15-37); BUN Creatinine Ratio 28.4; Bilirubin Total 0.2 mg/dL (0.2-1.0); Calcium 8.4 mg/dL (8.5-10.1); Chloride 96 mmol/L (98-107); Estimated GFR (African America 44 (>=60); Estimated GFR (Non-African Ame 36 (>=60); Glucose 93 mg/dL (74-106); Potassium 4.5 mmol/L (3.5-5.1); Sodium 135 mmol/L (136-145); Total Protein 5.5 g/dL (6.4-8.2)
[2023-02-01 05:27] LABS: Phosphorus 5.2 mg/dL (2.6-4.7)
[2023-02-01 07:53] LABS: Glucometer 136 mg/dL (74-106)
--- NOTE | 2023-02-01 08:49 | P.PN_ITS ---
Progress Note: Subjective Subjective Interval history: Looks better today - discussed need for Blood transfusion Exam Constitutional Vital Signs, click to edit/add: Last Vital Signs Temp 98.5 F 01/31/23 19:59 Pulse 91 H 02/01/23 06:05 Resp 19 02/01/23 06:00 BP 135/72 H 02/01/23 01:14 Pulse Ox 94 L 02/01/23 04:59 O2 Del Method Nasal Cannula 02/01/23 04:59 O2 Flow Rate 2 02/01/23 04:59 Chest Common normals: inspection of chest normal Respiratory Common normals: abnormal respiratory effort Effort & inspection: tachypneic; no respiratory distress Auscultation: rhonchi Cardio Common normals: regular rate and regular rhythm GI Palpation: tender Progress Note: Objective Labs Labs: Short CBC 02/01/23 Range/Units 03:59 WBC 14.7 H (4.0-11.0) 10^3/uL Hgb 6.9 L* (12.0-16.0) g/dL Hct 23.0 L* (36.0-48.0) % Plt Count 473 H (150-450) 10^3/uL BMP 02/01/23 03:59 Sodium 135 L Potassium 4.5 Chloride 96 L Carbon Dioxide 36.0 H BUN 40.0 H Creatinine 1.41 H Glucose 93 Calcium 8.4 L Liver Function 02/01/23 Range/Units 03:59 Total Bilirubin 0.2 (0.2-1.0) mg/dL AST 19 (15-37) U/L ALT 19 (14-59) U/L Alkaline Phosphatase 53 (46-116) U/L Albumin 1.5 L (3.4-5.0) g/dL Progress Note: A&P Assessment and Plan (1) Necrotizing pneumonia: (2) Hypoxia: (3) Congenital patent ductus arteriosus aneurysm: (4) Compression fracture: (5) Immunosuppressed status: (6) Pneumonia due to organism: (7) Diabetes mellitus: (8) Hypertension: (9) Rheumatoid arthritis: Assessment and Plan: Respiratory distress, uncontrolled hypertension, leukocytosis, thrombocythemia, acute hypoxic respiratory failures with acute exacerbation of oxygen dependent COPD secondary to left lower lobe pneumonia, resulting in dehydration with severe sepsis.? IV antibiotics, sputum culture, aerosols, consult to pulmonology, CT scan concerning for malignancy - Consult to cardiology, pulmonology Anemia - possible acute - serial labs, check occ blood Thrombocythemia - not critical - likely due to the above - monitor Aortic Ductus Aneurysm - 3cm - check echo to see if can track size - consider consult to cardiology Dehydration with elevated b/c -? - cont with IV fluids Hyponatremia - Improved - monitor Hyperphosphatemia - check levels in am Sever hypoalbuminemia - protein supplement Pancreatic cyst - check ca 19-[address] on ISS Thoracic spine compression Fx - may need MRI to eval acuteness - with concern for malignancy - possible mets
--- NOTE | 2023-02-01 09:16 | CM.NOTE ---
Rounds made with Dr. Owen, no discharge today. PT and OT to evaluate pt today. Pt will have cardiac echo and blood transfusion. Case Management and SW will follow for discharge needs.
[2023-02-01] MEDS: DILTIAZEM HCL 240 MG CAP.ER.24H PO (09:29)
[2023-02-01] MEDS: GLIPIZIDE 5 MG TABLET 2.5 MG PO (09:29)
[2023-02-01] MEDS: FOLIC ACID 1 MG TABLET PO (09:29)
[2023-02-01] MEDS: HYDROXYCHLOROQUINE SULFATE 200 MG TABLET PO (09:29)
[2023-02-01] MEDS: PANTOPRAZOLE SODIUM 40 MG VIAL IV ×2 (09:29→21:24)
[2023-02-01] MEDS: CARVEDILOL 3.125 MG TABLET PO ×2 (09:30→21:15)
[2023-02-01] MEDS: LOSARTAN POTASSIUM 50 MG TABLET PO (09:30)
[2023-02-01] MEDS: ENSURE HP 237 ML LIQUID PO ×2 (10:28→21:16)
[2023-02-01] MEDS: 0.9 % SODIUM CHLORIDE 250 ML IV.SOLN IV (10:29)
[2023-02-01] MEDS: SUCRALFATE 1 GM TABLET PO ×3 (11:17→21:28)
[2023-02-01 11:18] LABS: Glucometer 213 mg/dL (74-106)
[2023-02-01] MEDS: INSULIN ASPART 300 UNIT/3 ML PEN SUBQ ×2 (11:18→22:03)
[2023-02-01] MEDS: ACETYLCYSTEINE 400 MG/4 ML VIAL 200 MG IH ×3 (11:35→21:53)
--- NOTE | 2023-02-01 13:05 | P.PLCN_ITS ---
History of Present Illness History of Present Illness Consult date: 02/01/23 Requesting physician: Francisco Javier Owen Reason for consult: pneumonia Chief complaint: PNUMONIA COPD EXACERBATION Narrative: 72yo female presented to [facility] with dyspnea, cough, and hemoptysis. She is visiting from [place], [place] to visit her son; she is originally from [place], [place] and moved in with her daughter in [place] last year. She has O2- dependent COPD with uncontrolled symptoms, but states she only has albuterol? She has a wildlife veterinarian in [place], with last visit sometime in December. She was prescribed antibiotics and was to have a F/U appointment with this wildlife veterinarian sometime in March. The patient states her breathing has not been doing too well over the past week. This past 01/30/2023, she had hemoptysis, which prompted her to come in to the ER. CTA showed no pulmonary emboli, but there was moderate-severe emphysema, extensive cylindrical and varicose bronchectasis, mucus plugging in RML and bilateral lower lobes, and infiltrates/consolidation in the LLL and lingula with suspicion for necrosis. She denies any fevers, chills, or sweats. She is on home O2 @ 2L/min, but she has required an increase to 3L/min during admission. She states she feels a little better, but has difficulty expectorating. She was provided a PEP device this morning. She has had rheumatoid arthritis since in her 30's and is on DMARDs (Plaquenil, methotrexate, and prednisone). Review of Systems ROS Narrative Main symptoms are coughing, dyspnea, and hemoptysis. Denies any fevers, chills, or sweats. Decreased appetite - 30 pound weight loss over past several months, including 7 within the past week. Status of ROS 10 or more systems reviewed and unremarkable except as noted in history and below [facility] Medical History (Updated 01/31/23 @ 00:29 by Michelle Irving MD) Surgical History (Updated 01/30/23 @ 23:07 by Spencer Hayes) Family History (Updated 01/30/23 @ 23:09 by Spencer Hayes) Father Family history of diabetes mellitus Family history of hypertension Family history of myocardial infarction Blood clot in leg Mother Family history of myocardial infarction Social History (Updated 01/30/23 @ 23:12 by Spencer Hayes) Within the past year, how often did you have a drink containing alcohol: never Score interpretation: A score less than 3 is consistent with normal alcohol consumption. Smoking status: Former smoker Second hand tobacco smoke exposure: No Non-prescribed substance use: denies use Known occupational exposures/hazards: No Highest level of school completed/degree received: high school graduate Are you now , , , , never or living with a partner: In a typical week, how many times do you talk on the telephone with family, friends, or neighbors: 3 or more times per week How often do you get together with friends or relatives: 3 or more times per week How often do you attend restorationism or orthodoxy services: never Do you belong to any clubs or organizations such as restorationism groups unions, [employer] or athletic groups, or school groups: no Total score: 1 Score interpretation: A score of less than or equal to 1 indicates the most socially isolated. Little interest or pleasure in doing things: several days Feeling down, depressed, or hopeless: several days Feel stressed/tense/nervous/anxious/difficulty sleeping: only a little Due to disability, difficulty making decisions: No Do you think of yourself as: decline to answer Gender Identity: female Meds Home Medications and Allergies Home Medications Medication Instructions Recorded Confirmed Type acetylcysteine 600 mg tablet (NAC) 600 mg PO DAILY 01/30/23 01/30/23 History albuterol sulfate 90 mcg/actuation 2 puff inhalation Q6H PRN 01/30/23 01/30/23 History aerosol inhaler shortness of breath or wheezing carvedilol 3.125 mg tablet 3.125 mg PO Q12H 01/30/23 01/30/23 History diltiazem HCl 240 mg capsule,24 240 mg PO Q24H 01/30/23 01/30/23 History hr,extended release folic acid 1 mg tablet 1 mg PO DAILY 01/30/23 01/30/23 History glipizide 2.5 mg tablet, extended 2.5 mg PO DAILY 01/30/23 01/30/23 History release 24 hr hydroxychloroquine 200 mg tablet 200 mg PO DAILY 01/30/23 01/30/23 History losartan 50 mg tablet 50 mg PO DAILY 01/30/23 01/30/23 History methotrexate sodium 2.5 mg tablet 15 mg PO .weekly 01/30/23 01/30/23 History prasugrel 10 mg tablet 10 mg PO DAILY 01/30/23 01/30/23 History prednisone 5 mg tablet 5 mg PO DAILY 01/30/23 01/30/23 History rosuvastatin 20 mg tablet 20 mg PO DAILY 01/30/23 01/30/23 History tiotropium bromide 2.5 2 puff inhalation Q24H 01/30/23 01/30/23 History mcg/actuation mist for inhalation (Spiriva Respimat) tramadol 50 mg tablet 50 mg PO Q4H PRN pain 01/30/23 01/30/23 History Allergies Allergy/AdvReac Type Severity Reaction Status Date / Time No Known Drug Allergies Allergy Verified 01/30/23 16:57 Exam Constitutional Vital Signs, click to edit/add: Last Vital Signs Temp 97.6 F 02/01/23 12:52 Pulse 72 02/01/23 12:52 Resp 16 02/01/23 12:52 BP 147/73 H 02/01/23 12:52 Pulse Ox 100 02/01/23 11:36 O2 Del Method Nasal Cannula 02/01/23 12:52 O2 Flow Rate 2 02/01/23 12:52 Documenting provider has reviewed patient's vital signs: yes Common normals: no apparent distress Nutritional appearance: cachectic HENMT Other: Wearing nasal cannula Respiratory Other: Diminished breath sounds, crackles in left base, scattered rhonchi Cardio Rate: regular rate Rhythm: regular rhythm GI Common normals: Normal to inspection, nondistended, normoactive bowel sounds present Extremity Other: Decreased muscle mass Neuro Other: No seizure activity Psych Common normals: mental status grossly normal Attitude: calm Results Laboratory Findings Abnormal lab findings: Abnormal Labs 01/30/23 01/30/23 01/30/23 04:00 17:05 17:27 WBC 16.6 H 13.1 H RBC 2.68 L 3.06 L Hgb 7.5 L 8.6 L Hct 25.1 L 29.0 L MCHC 29.7 L RDW 16.0 H 15.9 H Plt Count 499 H 483 H MPV 9.4 L Neut % (Auto) 95.6 H 89.3 H Lymph % (Auto) 0.7 L 1.9 L Eos % (Auto) 0.0 L 0.1 L Baso % (Auto) 0.1 L Neut # (Auto) 15.9 H 11.7 H Lymph # (Auto) 0.1 L 0.3 L [place] # (Auto) 1.0 H Abs Immat Gran (auto) 0.14 H 0.13 H Imm/Tot Granulo (auto) 0.8 H 1.0 H Sodium 135 L 135 L Chloride 96 L 96 L Carbon Dioxide 32.8 H 37.7 H BUN 28.0 H 25.0 H Creatinine Est GFR ( Amer) Est GFR (Non-Af Amer) 54 L 58 L Glucose 107 H 135 H Calcium Phosphorus 5.5 H AST 11 L Total Protein 5.9 L Albumin 1.5 L Ur Specific [place] Urine Protein Urine Ketones Urine Occult Blood Urine Bilirubin Urine WBC Ur Squamous Epith Cells Urine Bacteria Urine Casts Urine Mucus Staphylococcus sp PCR Detected A* mecA/C-Methicil Resis Gene Detected A* Staph epidermidis (PCR) Detected A* POC Glucose Crossmatch 01/30/23 01/31/23 01/31/23 17:40 04:00 08:16 WBC RBC Hgb Hct MCHC RDW Plt Count MPV Neut % (Auto) Lymph % (Auto) Eos % (Auto) Baso % (Auto) Neut # (Auto) Lymph # (Auto) Geary # (Auto) Abs Immat Gran (auto) Imm/Tot Granulo (auto) Sodium Chloride Carbon Dioxide BUN Creatinine Est GFR ( Amer) Est GFR (Non-Af Amer) Glucose Calcium Phosphorus AST Total Protein 5.9 L Albumin 1.5 L Ur Specific [place] >=1.030 A Urine Protein >=300 A Urine Ketones Trace A Urine Occult Blood Small A Urine Bilirubin Small A Urine WBC 0-2 A Ur Squamous Epith Cells Moderate A Urine Bacteria Trace A Urine Casts Seen A Urine Mucus Trace A Staphylococcus sp PCR mecA/C-Methicil Resis Gene Staph epidermidis (PCR) POC Glucose 140 H Crossmatch 01/31/23 01/31/23 02/01/23 11:51 16:18 03:59 WBC 14.7 H RBC 2.48 L Hgb 6.9 L* Hct 23.0 L* MCHC RDW 16.3 H Plt Count 473 H MPV 9.1 L Neut % (Auto) 94.7 H Lymph % (Auto) 1.4 L Eos % (Auto) 0.0 L Baso % (Auto) Neut # (Auto) 13.9 H Lymph # (Auto) 0.2 L [place]ary # (Auto) Abs Immat Gran (auto) 0.12 H Imm/Tot Granulo (auto) 0.8 H Sodium 135 L Chloride 96 L Carbon Dioxide 36.0 H BUN 40.0 H Creatinine 1.41 H Est GFR ( Amer) 44 L Est GFR (Non-Af Amer) 36 L Glucose Calcium 8.4 L Phosphorus 5.2 H AST Total Protein 5.5 L Albumin 1.5 L Ur Specific [place] Urine Protein Urine Ketones Urine Occult Blood Urine Bilirubin Urine WBC Ur Squamous Epith Cells Urine Bacteria Urine Casts Urine Mucus Staphylococcus sp PCR mecA/C-Methicil Resis Gene Staph epidermidis (PCR) POC Glucose 230 H 134 H Crossmatch 02/01/23 02/01/23 02/01/23 07:53 08:16 11:16 WBC RBC Hgb Hct MCHC RDW Plt Count MPV Neut % (Auto) Lymph % (Auto) Eos % (Auto) Baso % (Auto) Neut # (Auto) Lymph # (Auto) [place]ary # (Auto) Abs Immat Gran (auto) Imm/Tot Granulo (auto) Sodium Chloride Carbon Dioxide BUN Creatinine Est GFR ( Amer) Est GFR (Non-Af Amer) Glucose Calcium Phosphorus AST Total Protein Albumin Ur Specific [place] Urine Protein Urine Ketones Urine Occult Blood Urine Bilirubin Urine WBC Ur Squamous Epith Cells Urine Bacteria Urine Casts Urine Mucus Staphylococcus sp PCR mecA/C-Methicil Resis Gene Staph epidermidis (PCR) POC Glucose 136 H 213 H Crossmatch See Detail Assessment and Plan Assessment and Plan (1) Pneumonia due to organism: Plan 1. Pneumonia (LLL, lingula of GALE). Etiology unclear, but as she is on P laquenil, MTX, and prednisone, must treat more aggressively for potentially more severe infections. Agree with current antibiotics. Will need close F/U with repeat CT in 1 month given questionable cavitary/necrotizing features. The concern is F/U - the patient is just here visiting, and she is already established with a wildlife veterinarian in [place], [place]. If she recovered to the point she is able to be discharged, she will need to determine whether or not she is going to stay in the area longer (and therefore will need a F/U with me), or return to [place] within the next month which in that case I would defer to the wildlife veterinarian there to get the CT done - she will need an appointment sooner than March. If she clinically deteriorates, will need bronchoscopy sooner. 2. Bronchiectasis with acute exacerbation. Personally reviewed imaging...significant cylindrical bronchiectasis with some varicose features, along with mucus plugging in the lower lobes and RML. The patient does not appear severe enough to warrant a bronchoscopy at this time; will attempt to improve her pulmonary toilet by using PEP and Mucomyst. Monitor for improvement. 3. Acute exacerbation of COPD. Has moderately-severe emphysematous findings in her lung. Recommend alpha1-antitrypsin testing. She states she is only on albuterol at home; she may benefit from a maintenance inhaler at discharge (e.g. LAMA/LABA or LAMA/LABA/ICS). 4. [id number] hypoxic respiratory failure. Acute secondary to the above. Baseline O2 @ 2L/min. 5. Pulmonary cachexia. BMI only 16. Has protein calorie malnutrition. Continue dietary supplements, in home aide evaluation. 6. Diabetes mellitus type 2. Pre diabetes yet on glipizide. Monitor FSBS closely while on higher doses of steroids than baseline. 7. Rheumatoid arthritis. On DMARDs. Increases risk for more severe pulmonary disease. No apparent rheumatoid lung nodules...no baseline CT imaging available. 8. History of tobacco abuse. Quit 2004.
[2023-02-01 14:17] LABS: Basophils Absolute Auto 0.1 10^3/uL (0.0-0.1); Basophils Percent Auto 0.7 % (0.2-2.0); Hematocrit 33.6 % (36.0-48.0); Immature Granulocytes Abs Auto 0.11 10^3/uL (0.00-0.03); Immature Granulocytes Pct Auto 0.9 % (0.0-0.5); Lymphocytes Absolute Auto 0.1 10^3/uL (1.2-3.8); Lymphocytes Percent Auto 0.8 % (20.5-60.0); Mean Corpuscular HGB Conc 32.7 g/dL (29.9-35.2); Mean Corpuscular Hemoglobin 28.2 pg (26.7-34.0); Mean Corpuscular Volume 86.2 fL (81.0-99.0); Mean Platelet Volume 8.9 fL (9.5-13.5); Monocytes Absolute Auto 0.4 10^3/uL (0.3-0.8); Monocytes Percent Auto 2.8 % (1.7-12.0); Neutrophils Absolute Auto 12.3 10^3/uL (1.4-6.5); Neutrophils Percent Auto 94.8 % (43.0-75.0); Platelet Count 404 10^3/uL (150-450); Red Cell Distribution Width 16.4 % (11.0-15.0); White Blood Count 12.9 10^3/uL (4.0-11.0)
--- NOTE | 2023-02-01 15:04 | SWNOTE1 ---
SW met with pt to discuss dc needs. Pt lives at home with her son. Pt's son in room as well. Pt has another son in [place] and she goes to stay with him at times as well. Pt does have home oxygen at 2 liters and she does have a rollator that she uses at home as well. Pt is not sure what her discharge needs will be. SW did mention home health, but pt wants to wait and see how she progresses before deciding. SW to re-assess tomorrow.
[2023-02-01] MEDS: LEVOFLOXACIN IN DEXTROSE 5 % 750 MG/150 ML PIGGYBACK IV (16:19)
[2023-02-01 16:20] LABS: Glucometer 136 mg/dL (74-106)
[2023-02-01] MEDS: ATORVASTATIN CALCIUM 40 MG TABLET PO (21:15)
[2023-02-01 21:45] LABS: Glucometer 250 mg/dL (74-106)
[2023-02-02] VITALS (31 sets, daily range): BP systolic 128–162; BP diastolic 55–86; PULSE 59–86; RESP 7–39; TEMP 36.4–36.9; O2SAT 92–99
[2023-02-02] MEDS: PIPERACILLIN SODIUM/TAZOBACTAM 3.375 GM in 0.9 % SODIUM CHLORIDE 50 ML IV ×3 (02:10→16:17)
[2023-02-02] MEDS: METHYLPREDNISOLONE SOD SUCC PF 40 MG/ML VIAL 60 MG IVP ×4 (02:11→21:49)
[2023-02-02 04:36] LABS: Basophils Percent Auto 0.4 % (0.2-2.0); Hematocrit 32.5 % (36.0-48.0); Hemoglobin 10.7 g/dL (12.0-16.0); Immature Granulocytes Pct Auto 1.1 % (0.0-0.5); Lymphocytes Absolute Auto 0.1 10^3/uL (1.2-3.8); Lymphocytes Percent Auto 0.7 % (20.5-60.0); Mean Corpuscular HGB Conc 32.9 g/dL (29.9-35.2); Mean Corpuscular Hemoglobin 28.4 pg (26.7-34.0); Mean Corpuscular Volume 86.2 fL (81.0-99.0); Mean Platelet Volume 9.3 fL (9.5-13.5); Monocytes Absolute Auto 0.1 10^3/uL (0.3-0.8); Monocytes Percent Auto 1.4 % (1.7-12.0); Neutrophils Absolute Auto 8.8 10^3/uL (1.4-6.5); Neutrophils Percent Auto 96.4 % (43.0-75.0); Platelet Count 330 10^3/uL (150-450); Red Blood Count 3.77 10^6/uL (4.20-5.40); Red Cell Distribution Width 17.1 % (11.0-15.0); White Blood Count 9.2 10^3/uL (4.0-11.0)
[2023-02-02] MEDS: ACETYLCYSTEINE 400 MG/4 ML VIAL 200 MG IH ×4 (04:45→21:31)
[2023-02-02] MEDS: IPRATROPIUM/ALBUTEROL SULFATE 3 ML AMPUL.NEB IH ×4 (04:45→21:30)
[2023-02-02 04:53] LABS: Phosphorus 4.4 mg/dL (2.6-4.7)
[2023-02-02] MEDS: TRAMADOL HCL 50 MG TABLET PO ×3 (04:58→19:54)
[2023-02-02 05:00] LABS: Alanine Aminotransferase 23 U/L (14-59); Albumin Globulin Ratio 0.4; Albumin Level 1.5 g/dL (3.4-5.0); Alkaline Phosphatase 50 U/L (46-116); Aspartate Amino Transferase 17 U/L (15-37); BUN Creatinine Ratio 36.5; Bilirubin Total 0.3 mg/dL (0.2-1.0); Carbon Dioxide 35.1 mmol/L (21.0-32.0); Chloride 97 mmol/L (98-107); Estimated GFR (African America 56 (>=60); Estimated GFR (Non-African Ame 46 (>=60); Globulin 3.4 g/dL; Glucose 105 mg/dL (74-106); Magnesium 2.2 mg/dL (1.8-2.4); Potassium 4.1 mmol/L (3.5-5.1); Sodium 139 mmol/L (136-145); Total Protein 4.9 g/dL (6.4-8.2)
[2023-02-02 05:12] LABS: CA 19-9 12 U/mL (0-35)
[2023-02-02 07:12] LABS: Glucometer 142 mg/dL (74-106)
[2023-02-02] MEDS: FOLIC ACID 1 MG TABLET PO (08:19)
[2023-02-02] MEDS: DILTIAZEM HCL 240 MG CAP.ER.24H PO (08:19)
[2023-02-02] MEDS: HYDROXYCHLOROQUINE SULFATE 200 MG TABLET PO (08:19)
[2023-02-02] MEDS: SUCRALFATE 1 GM TABLET PO ×4 (08:19→21:49)
[2023-02-02] MEDS: GLIPIZIDE 5 MG TABLET 2.5 MG PO (08:20)
[2023-02-02] MEDS: ENSURE HP 237 ML LIQUID PO ×2 (08:20→21:50)
[2023-02-02] MEDS: CARVEDILOL 3.125 MG TABLET 6.25 MG PO ×2 (08:20→21:49)
[2023-02-02] MEDS: LOSARTAN POTASSIUM 50 MG TABLET PO (08:20)
[2023-02-02] MEDS: PANTOPRAZOLE SODIUM 40 MG VIAL IV ×2 (08:28→21:49)
[2023-02-02] MEDS: INSULIN ASPART 300 UNIT/3 ML PEN SUBQ ×4 (08:30→21:51)
--- NOTE | 2023-02-02 08:55 | P.PLPN_ITS ---
Progress Note: A&P Assessment and Plan (1) Pneumonia due to organism: Plan 1. Pneumonia. No identified agent. Clinically improving with current antibiotics. She is immunocompromised given DMARDs for RA. Given the areas in lingula and LLL suspicious for necrosis, will need a F/U CT in ~1 month. Discussed with patient that this could be a cancer given her smoking history and F/U is prudent. If she is staying in the area until March, I advised her that I could order a CT chest that would be due beginning of February and I can F/U with her here, and then resume care with her [facility] acquisition advisor. 2. Bronchiectasis with acute exacerbation.? Mucus plugging noted on CT. Improved sputum mobilization with PEP and Mucomyst. Continue a good pulmonary toilet. 3. Acute exacerbation of COPD.? Ordering AAT testing. Recommend maintenance inhaler @ discharge. 4. Pwgli-pz-nevvwbd hypoxic respiratory failure.? Improved, back to baseline 2L/min at rest. She states she is relatively immobile, so unclear exactly her ambulatory/activity goal O2 flow is. 5. Pulmonary cachexia with protein calorie malnutrition.? Healthy calorie intake. 6. Diabetes mellitus type 2. Pre diabetes yet on glipizide.? Monitor FSBS closely while on higher doses of steroids than baseline. 7. Rheumatoid arthritis.? On DMARDs outpatient - Plaquenil and MTX held d/t acute illness. 8. History of tobacco abuse.? Quit 2004. Subjective Subjective Interval history: Patient states she is feeling better from admission. Still has some dyspnea. Was bringing up quite a bit of mucus yesterday after starting Mucomyst along with PEP, but that has off some as of this morning. Denies any chest pain. O2 has been weaned down to 2L/min @ rest, which is her baseline. Discussed her plans after she is discharged from the hospital. She states that she will be going back to [facility] but not until the beginning of March now (was previously going to be February). Exam Constitutional Vital Signs, click to edit/add: Last Vital Signs Temp 98.5 F 02/02/23 07:12 Pulse 75 02/02/23 07:12 Resp 13 02/02/23 07:12 BP 156/71 H 02/02/23 08:20 Pulse Ox 93 L 02/02/23 07:12 O2 Del Method Room Air 02/02/23 04:59 O2 Flow Rate 2 02/02/23 04:59 Documenting provider has reviewed patient's vital signs: yes Common normals: no apparent distress Nutritional appearance: cachectic HENMT Other: Wearing nasal cannula Chest Common normals: inspection of chest normal Respiratory Common normals: normal respiratory effort and no use of accessory muscles Effort & inspection: able to speak in complete sentences Auscultation: crackles Laterality: left in the mid lung person and in the lower lung person Percussion: hyperresonance Cardio Rate: regular rate Rhythm: regular rhythm GI Common normals: Normal to inspection, nondistended, normoactive bowel sounds present Extremity Common normals: normal to inspection Neuro Common normals: no focal motor deficits Motor exam: no tremor noted and no fasciculations Psych Common normals: mental status grossly normal
--- NOTE | 2023-02-02 08:58 | SWNOTE1 ---
SW reviewed IMM form with pt and pt's son. Pt voiced understanding, no questions or concerns. Pt's son signed IMM form, copy placed in chart and original given to son.
--- NOTE | 2023-02-02 10:22 | CM.NOTE ---
Rounds made with Dr. Owen, PT did recommend skilled therapy for pt upon discharge. Dr. Owen discussed options with pt, SW will follow-up today to determine plan at discharge for pt.
--- NOTE | 2023-02-02 10:23 | P.PN_ITS ---
Progress Note: Subjective Subjective Interval history: Overall does look better today. Better today. Exam Constitutional Vital Signs, click to edit/add: Last Vital Signs Temp 98.5 F 02/02/23 07:12 Pulse 67 02/02/23 10:08 Resp 13 02/02/23 07:12 BP 156/71 H 02/02/23 08:20 Pulse Ox 93 L 02/02/23 07:12 O2 Del Method Room Air 02/02/23 04:59 O2 Flow Rate 2 02/02/23 04:59 Documenting provider has reviewed patient's vital signs: yes Common normals: no apparent distress Nutritional appearance: cachectic HENMT Other: Wearing nasal cannula Chest Common normals: inspection of chest normal Respiratory Common normals: normal respiratory effort and no use of accessory muscles Effort & inspection: able to speak in complete sentences Auscultation: crackles Laterality: left in the mid lung person and in the lower lung person Percussion: hyperresonance Cardio Rate: regular rate Rhythm: regular rhythm GI Common normals: Normal to inspection, nondistended, normoactive bowel sounds present Extremity Common normals: normal to inspection Neuro Common normals: no focal motor deficits Motor exam: no tremor noted and no fasciculations Psych Common normals: mental status grossly normal Progress Note: Objective Labs Labs: Short CBC 02/01/23 02/02/23 Range/Units 13:58 04:10 WBC 12.9 H 9.2 (4.0-11.0) 10^3/uL Hgb 11.0 L 10.7 L (12.0-16.0) g/dL Hct 33.6 L 32.5 L (36.0-48.0) % Plt Count 404 330 (150-450) 10^3/uL BMP 02/02/23 04:10 Sodium 139 Potassium 4.1 Chloride 97 L Carbon Dioxide 35.1 H BUN 42.0 H Creatinine 1.15 H Glucose 105 Calcium 8.0 L Liver Function 02/02/23 Range/Units 04:10 Total Bilirubin 0.3 (0.2-1.0) mg/dL AST 17 (15-37) U/L ALT 23 (14-59) U/L Alkaline Phosphatase 50 (46-116) U/L Albumin 1.5 L (3.4-5.0) g/dL Progress Note: A&P Assessment and Plan (1) Pneumonia due to organism: (2) Hypoxia: (3) Congenital patent ductus arteriosus aneurysm: (4) Compression fracture: (5) Immunosuppressed status: (6) Diabetes mellitus: (7) Hypertension: (8) Rheumatoid arthritis: Assessment and Plan: Respiratory distress, uncontrolled hypertension, leukocytosis, thrombocythemia, acute hypoxic respiratory failures with acute exacerbation of oxygen dependent C OPD secondary to left lower lobe pneumonia, resulting in dehydration with severe sepsis.? IV antibiotics, sputum culture, aerosols, consult to pulmonology, CT scan concerning for malignancy - Consult to cardiology, pulmonology -= we will overall is improving-possible possible transfer to [facility] Anemia - possible acute - -better today better today after transfusion. Plan Thrombocythemia - not critical - likely due to the above - monitor Aortic Ductus Aneurysm - 3cm - Unable to see on Ultrasound, will need to be followed with CT Dehydration with elevated b/c -? - kidney function improving Hyponatremia - stable, continue to monitor Hyperphosphatemia - check levels in am Sever hypoalbuminemia - protein supplement Pancreatic cyst - check ca [id number] Diabetes - place on ISS Thoracic spine compression Fx - may need MRI to eval acuteness - with concern for malignancy - possible mets
--- NOTE | 2023-02-02 10:37 | SWNOTE1 ---
SW spoke with case management and pt will likely need SNF. SW spoke with pt and she is agreeable. She would like SW to talk to her son about facilities. SW called and left message for pt's son, Alec.
[2023-02-02 11:03] LABS: Glucometer 200 mg/dL (74-106)
--- NOTE | 2023-02-02 12:11 | DIETREC ---
Nutrition Recommendations: 1. Remove 1800 Calorie and Renal diet restrictions. Reviewed with
[2023-02-02] MEDS: LEVOFLOXACIN IN DEXTROSE 5 % 750 MG/150 ML PIGGYBACK IV (13:33)
[2023-02-02 15:34] LABS: Glucometer 189 mg/dL (74-106)
--- NOTE | 2023-02-02 15:42 | SWNOTE1 ---
KARIS spoke with pt's son in room. KARIS went over pt going to halfway facility for rehab, explained that medicare pays. KARIS gave pt's son a list from medicare.gov with star ratings. Pt's son will review and call SW tomorrow on the final decision.
[2023-02-02] MEDS: ATORVASTATIN CALCIUM 40 MG TABLET PO (19:54)
[2023-02-02 22:21] LABS: Glucometer 196 mg/dL (74-106)
[2023-02-03] VITALS (18 sets, daily range): BP systolic 113–161; BP diastolic 58–79; PULSE 59–78; RESP 18–22; TEMP 36.4–36.5; O2SAT 92–97
[2023-02-03] MEDS: PIPERACILLIN SODIUM/TAZOBACTAM 3.375 GM in 0.9 % SODIUM CHLORIDE 50 ML IV ×3 (02:06→17:14)
[2023-02-03] MEDS: TRAMADOL HCL 50 MG TABLET PO ×4 (02:52→23:54)
[2023-02-03] MEDS: METHYLPREDNISOLONE SOD SUCC PF 40 MG/ML VIAL 60 MG IVP ×4 (02:52→21:32)
[2023-02-03] MEDS: ACETYLCYSTEINE 400 MG/4 ML VIAL 200 MG IH ×4 (04:22→21:37)
[2023-02-03] MEDS: IPRATROPIUM/ALBUTEROL SULFATE 3 ML AMPUL.NEB IH ×4 (04:22→21:37)
[2023-02-03 05:16] LABS: Basophils Percent Auto 0.6 % (0.2-2.0); Hematocrit 34.6 % (36.0-48.0); Hemoglobin 11.2 g/dL (12.0-16.0); Immature Granulocytes Abs Auto 0.04 10^3/uL (0.00-0.03); Immature Granulocytes Pct Auto 0.8 % (0.0-0.5); Lymphocytes Absolute Auto 0.1 10^3/uL (1.2-3.8); Lymphocytes Percent Auto 1.5 % (20.5-60.0); Mean Corpuscular HGB Conc 32.4 g/dL (29.9-35.2); Mean Corpuscular Hemoglobin 28.4 pg (26.7-34.0); Mean Corpuscular Volume 87.8 fL (81.0-99.0); Monocytes Percent Auto 0.8 % (1.7-12.0); Neutrophils Absolute Auto 5.1 10^3/uL (1.4-6.5); Neutrophils Percent Auto 96.3 % (43.0-75.0); Platelet Count 264 10^3/uL (150-450); Red Blood Count 3.94 10^6/uL (4.20-5.40); Red Cell Distribution Width 16.7 % (11.0-15.0); White Blood Count 5.3 10^3/uL (4.0-11.0)
[2023-02-03 05:29] LABS: Phosphorus 3.5 mg/dL (2.6-4.7)
[2023-02-03 05:30] LABS: Alanine Aminotransferase 20 U/L (14-59); Albumin Globulin Ratio 0.4; Albumin Level 1.5 g/dL (3.4-5.0); Alkaline Phosphatase 44 U/L (46-116); Anion Gap 8.2; Aspartate Amino Transferase 18 U/L (15-37); Bilirubin Total 0.3 mg/dL (0.2-1.0); Carbon Dioxide 35.3 mmol/L (21.0-32.0); Chloride 96 mmol/L (98-107); Estimated GFR (African America 51 (>=60); Estimated GFR (Non-African Ame 42 (>=60); Globulin 3.7 g/dL; Glucose 211 mg/dL (74-106); Magnesium 2.1 mg/dL (1.8-2.4); Potassium 3.5 mmol/L (3.5-5.1); Sodium 136 mmol/L (136-145); Total Protein 5.2 g/dL (6.4-8.2)
--- NOTE | 2023-02-03 08:00 | XR_ITS ---
The [address] [address] Patient Name: LAQUITA CASTRO MRN: [id number] date: 1950 Sex: F Assigned Patient Location: Current Patient Location: Accession/Order Number: [id number] Exam Date: 02/03/2023 08:00 Report Date: 02/03/2023 08:54 At the request of: RAMIN SURESH Procedure: XR chest 1V PROCEDURE: XR chest 1V DATE: 02/03/2023 7:00 AM CDT COMPARISONS: 01/30/2023 CLINICAL INDICATION: 72 years Female Pneumonia (left lung), pleurisy FINDINGS: The heart is prominent and stable. Significant heterogeneous opacity is noted of the left lower one half of the lung field. This is similar but slightly decreased from previous exam of 01/30/2023. This likely represents inflammatory infiltrate (pneumonia). Diffusely scattered chronic lung changes are again identified. There is evidence of bronchiectasis, better identified on CT than on this chest x-ray. There is no definite pleural effusion. There is no evidence of pneumothorax. XR/XR chest 1V IMPRESSION: Findings most consistent with significant inflammatory infiltrate of the lower one half of left lung field this appears to have decreased slightly in prominence since 01/30/2023. Significant chronic lung changes, stable. Stable cardiomegaly No new or progressing abnormalities on today's exam. Electronically authenticated by: DAVE WALLS Date: 02/03/2023 08:54
--- NOTE | 2023-02-03 08:06 | P.PLPN_ITS ---
Progress Note: A&P Assessment and Plan (1) Pneumonia due to Serratia marcescens: Plan 1. Serratia marcenscens pneumonia.? Serratia identified from sputum; as she is immunocompromised from RA and its treatment, it is reasonable to say that this is the causative agent for her pneumonia (working diagnosis).? Sensitivities are not resulted yet, but it is typically susceptible to fluoroquinolones & Zosyn (she is on both currently) ? E. coli susceptibility is unknown as well.? Given extent of pneumonia and necrotizing features, will continue on both until sensitivities return. ?She continues to have pleuritic pain which has not improved despite dyspnea slowly returning to baseline.? Concern for either natural progression of disease or abscess formation.? There are case reports that Serratia can cause cavitation.? Must also be concerned about neoplasm with her smoking history.? Will check CXR today.? If signs of progression, may need CT sooner than later (was performed on 01/30/2023).? Will add Celebrex 200md QD to see if that helps with pleurisy. 2. Bronchiectasis with acute exacerbation.? Mucus plugging noted on CT.? On PEP and saline nebs.? Not expectorating as much now as previously.? Monitor for now.? Holding off on bronchoscopy.? 3. Acute exacerbation of COPD.? AAT pending.? Suggest maintenance inhaler at discharge. 4. Kppye-do-[id number] hypoxic respiratory failure.? Acute hypoxia at rest resolved. Baseline 2L/min ATC. 5. Pulmonary cachexia with protein calorie malnutrition.? Healthy calorie intake. 6. Diabetes mellitus type 2 with steroid-induced hyperglycemia. Pre diabetes per patient.? Continue FSBS, SSI. 7. Rheumatoid arthritis.? On DMARDs outpatient - Plaquenil and MTX held d/t a cute illness. 8. E. coli UTI.? On Levaquin and Zosyn ? awaiting C&S. 9. Staphylococcus epidermidis ? blood culture.? Contaminant. 10. History of tobacco abuse.? Quit 2004. Subjective Subjective Interval history: Patient states her breathing is better compared to admission. She is not able to expectorate as well as when PEP and saline nebs were started. She still feels weak. Main complaint is left-sided burning pain, worsened when she is coughing. Denies a stabbing or ripping sensation. Feels better laying left lateral recumbent. Tramadol not helping much. Denies hemoptysis, fevers, chills, or sweats. Reviewed culture results: Serratia marcenscens sputum.? E. coli urine.? Staph epi blood (07/27).? Last imaging 01/30. AAT pending. Exam Constitutional Vital Signs, click to edit/add: Last Vital Signs Temp 97.7 F 02/03/23 06:00 Pulse 74 02/03/23 08:03 Resp 22 02/03/23 06:00 BP 156/73 H 02/03/23 06:00 Pulse Ox 94 L 02/03/23 06:00 O2 Del Method Nasal Cannula 02/03/23 04:22 O2 Flow Rate 2 02/03/23 06:00 Documenting provider has reviewed patient's vital signs: yes General appearance: frail appearing Nutritional appearance: cachectic Orientation/consciousness: Yes awake Other: Laying left lateral recumbent (has been laying like that every time I have seen her). HENMT Other: Wearing nasal cannula. Chest Common normals: inspection of chest normal Respiratory Effort & inspection: not labored Auscultation: crackles Laterality: left and diminished lung sounds; no wheezes Cardio Rate: regular rate Rhythm: regular rhythm GI Inspection: normal to inspection Extremity General: no edema Neuro Sensorium/orientation: awake and alert Psych Common normals: mental status grossly normal Attitude: calm
[2023-02-03] MEDS: DILTIAZEM HCL 240 MG CAP.ER.24H PO (08:27)
[2023-02-03] MEDS: SUCRALFATE 1 GM TABLET PO ×4 (08:27→21:04)
[2023-02-03] MEDS: GLIPIZIDE 5 MG TABLET 2.5 MG PO (08:28)
[2023-02-03] MEDS: FOLIC ACID 1 MG TABLET PO (08:28)
[2023-02-03] MEDS: LOSARTAN POTASSIUM 50 MG TABLET PO (08:32)
[2023-02-03] MEDS: HYDROXYCHLOROQUINE SULFATE 200 MG TABLET PO (08:32)
[2023-02-03] MEDS: CELECOXIB 200 MG CAPSULE PO (08:32)
[2023-02-03] MEDS: ENSURE HP 237 ML LIQUID PO ×2 (08:32→21:03)
[2023-02-03] MEDS: PANTOPRAZOLE SODIUM 40 MG VIAL IV ×2 (08:34→21:03)
[2023-02-03 08:35] LABS: Glucometer 233 mg/dL (74-106)
[2023-02-03] MEDS: CARVEDILOL 3.125 MG TABLET 12.5 MG PO ×2 (08:42→21:03)
[2023-02-03] MEDS: INSULIN ASPART 300 UNIT/3 ML PEN SUBQ ×3 (08:43→17:07)
--- NOTE | 2023-02-03 09:48 | CM.NOTE ---
Rounds made with Dr. Owen, pt in agreement to transfer to skilled facility for rehab. Pt and family will decide today which facility.
--- NOTE | 2023-02-03 09:54 | P.PN_ITS ---
Progress Note: Subjective Subjective Interval history: Patient states her breathing is little bit better than previous days still with significant dyspnea with any activity. Working on getting her into rehab. Exam Constitutional Vital Signs, click to edit/add: Last Vital Signs Temp 97.7 F 02/03/23 06:00 Pulse 74 02/03/23 08:03 Resp 20 02/03/23 08:00 BP 161/79 H 02/03/23 08:32 Pulse Ox 94 L 02/03/23 06:00 O2 Del Method Nasal Cannula 02/03/23 04:22 O2 Flow Rate 2 02/03/23 06:00 Documenting provider has reviewed patient's vital signs: yes Common normals: no apparent distress Nutritional appearance: cachectic HENMT Other: Wearing nasal cannula Chest Common normals: inspection of chest normal Respiratory Common normals: normal respiratory effort and no use of accessory muscles Effort & inspection: able to speak in complete sentences Auscultation: crackles Laterality: left in the mid lung person and in the lower lung person Percussion: hyperresonance Cardio Rate: regular rate Rhythm: regular rhythm GI Common normals: Normal to inspection, nondistended, normoactive bowel sounds present Extremity Common normals: normal to inspection Neuro Common normals: no focal motor deficits Motor exam: no tremor noted and no fasciculations Psych Common normals: mental status grossly normal Progress Note: Objective Labs Labs: Short CBC 02/03/23 Range/Units 04:36 WBC 5.3 (4.0-11.0) 10^3/uL Hgb 11.2 L (12.0-16.0) g/dL Hct 34.6 L (36.0-48.0) % Plt Count 264 (150-450) 10^3/uL BMP 02/03/23 04:36 Sodium 136 Potassium 3.5 Chloride 96 L Carbon Dioxide 35.3 H BUN 45.0 H Creatinine 1.25 H Glucose 211 H Calcium 8.0 L Liver Function 02/03/23 Range/Units 04:36 Total Bilirubin 0.3 (0.2-1.0) mg/dL AST 18 (15-37) U/L ALT 20 (14-59) U/L Alkaline Phosphatase 44 L (46-116) U/L Albumin 1.5 L (3.4-5.0) g/dL Progress Note: A&P Assessment and Plan (1) Pneumonia due to Serratia marcescens: (2) Hypoxia: (3) Congenital patent ductus arteriosus aneurysm: (4) Compression fracture: (5) Immunosuppressed status: (6) Diabetes mellitus: (7) Hypertension: (8) Rheumatoid arthritis: Assessment and Plan: Respiratory distress, uncontrolled hypertension, leukocytosis, thrombocythemia, acute hypoxic respiratory failures with acute exacerbation of oxygen dependent COPD secondary to left lower lobe pneumonia, resulting in dehydration with severe sepsis.? IV antibiotics, sputum culture, aerosols, consult to pulmonology, CT scan concerning for malignancy - Consult to cardiology, pulmonology -still waiting for final cultures Anemia - possible acute - -, hemoglobin better today Thrombocythemia - not critical --overall stable Aortic Ductus Aneurysm - 3cm - Unable to see on Ultrasound, will need to be followed with CT As an outpatient d Dehydration with elevated b/c -? - kidney function elevated slightly today Hyponatremia - stable, continue to monitor Hyperphosphatemia - check levels in am Sever hypoalbuminemia - protein supplement Pancreatic cyst - check ca [id number] Diabetes - place on ISS Thoracic spine compression Fx - may need MRI to eval acuteness - with concern for malignancy - possible mets
--- NOTE | 2023-02-03 10:24 | SWNOTE1 ---
SW called and left pt's son voicemail to see what facility they chose for rehab for pt.
[2023-02-03] MEDS: 0.9 % SODIUM CHLORIDE 250 ML 12.5 ML IV (10:37)
[2023-02-03] MEDS: PRASUGREL HCL 10 MG TABLET PO (10:55)
[2023-02-03 11:23] LABS: Glucometer 401 mg/dL (74-106)
[2023-02-03 11:23] LABS: Glucometer 384 mg/dL (74-106)
--- NOTE | 2023-02-03 11:29 | SWNOTE1 ---
KARIS spoke with son, Alec. He would like referral sent to [facility]. KARIS sent referral.
--- NOTE | 2023-02-03 11:30 | REH.PTDLY ---
Physical Therapy Daily Note PT Daily Note/Assess Start: 02/03/23 11:27 Freq: Status: Active Protocol: Document 02/03/23 11:28 ICNDY (Rec: 02/03/23 11:30 CINDY [id number]) Visit Not Completed Visit Not Completed Due to: Pt refusing Other Reason Visit Not Completed Attempted 2x to see pt, states she is just too tired and hasn't gotten any rest. Reports she does not walk. Asked if pt was planning on going to rehab then if she is not mobile at home and she states yes. Physical Therapy Daily Note/Assessment Time In 11:28 Time Out 11:29
--- NOTE | 2023-02-03 14:37 | SWNOTE1 ---
Pt is accepted to [facility]. SW reached out to doctor and she is not discharging today, likely tomorrow. SW notified [place], pt/pt's son and nursing of plans of discharge tomorrow.
[2023-02-03] MEDS: LEVOFLOXACIN IN DEXTROSE 5 % 750 MG/150 ML PIGGYBACK IV (15:16)
[2023-02-03 16:19] LABS: Glucometer 194 mg/dL (74-106)
[2023-02-03 20:48] LABS: Glucometer 130 mg/dL (74-106)
[2023-02-03] MEDS: ATORVASTATIN CALCIUM 40 MG TABLET PO (21:04)
[2023-02-04] VITALS (12 sets, daily range): BP systolic 132–154; BP diastolic 67–72; PULSE 60–73; RESP 18–22; TEMP 36.4; O2SAT 93–97
[2023-02-04] MEDS: PIPERACILLIN SODIUM/TAZOBACTAM 3.375 GM in 0.9 % SODIUM CHLORIDE 50 ML IV ×2 (01:43→08:16)
[2023-02-04] MEDS: METHYLPREDNISOLONE SOD SUCC PF 40 MG/ML VIAL 60 MG IVP ×3 (02:29→15:32)
[2023-02-04] MEDS: ACETYLCYSTEINE 400 MG/4 ML VIAL 200 MG IH ×2 (04:54→11:25)
[2023-02-04] MEDS: IPRATROPIUM/ALBUTEROL SULFATE 3 ML AMPUL.NEB IH ×2 (04:54→11:25)
[2023-02-04 05:22] LABS: Basophils Percent Auto 0.2 % (0.2-2.0); Hematocrit 33.5 % (36.0-48.0); Hemoglobin 10.9 g/dL (12.0-16.0); Immature Granulocytes Abs Auto 0.05 10^3/uL (0.00-0.03); Immature Granulocytes Pct Auto 1.2 % (0.0-0.5); Lymphocytes Absolute Auto 0.2 10^3/uL (1.2-3.8); Lymphocytes Percent Auto 4.1 % (20.5-60.0); Mean Corpuscular HGB Conc 32.5 g/dL (29.9-35.2); Mean Corpuscular Hemoglobin 28.2 pg (26.7-34.0); Mean Corpuscular Volume 86.6 fL (81.0-99.0); Monocytes Absolute Auto 0.1 10^3/uL (0.3-0.8); Monocytes Percent Auto 1.4 % (1.7-12.0); Neutrophils Absolute Auto 3.9 10^3/uL (1.4-6.5); Neutrophils Percent Auto 93.1 % (43.0-75.0); Platelet Count 222 10^3/uL (150-450); Red Blood Count 3.87 10^6/uL (4.20-5.40); Red Cell Distribution Width 15.8 % (11.0-15.0); White Blood Count 4.2 10^3/uL (4.0-11.0)
[2023-02-04 05:41] LABS: Alanine Aminotransferase 22 U/L (14-59); Albumin Globulin Ratio 0.4; Albumin Level 1.5 g/dL (3.4-5.0); Alkaline Phosphatase 44 U/L (46-116); Anion Gap 5.6; Aspartate Amino Transferase 19 U/L (15-37); BUN Creatinine Ratio 43.4; Bilirubin Total 0.3 mg/dL (0.2-1.0); Carbon Dioxide 36.2 mmol/L (21.0-32.0); Chloride 96 mmol/L (98-107); Estimated GFR (African America >60 (>=60); Estimated GFR (Non-African Ame 51 (>=60); Globulin 3.5 g/dL; Glucose 149 mg/dL (74-106); Sodium 135 mmol/L (136-145)
[2023-02-04 05:43] LABS: Phosphorus 3.4 mg/dL (2.6-4.7)
[2023-02-04 05:48] LABS: Potassium 2.8 mmol/L (3.5-5.1)
[2023-02-04] MEDS: TRAMADOL HCL 50 MG TABLET PO (06:39)
--- NOTE | 2023-02-04 08:02 | PM.PLPN ---
Progress Note: A&P Assessment and Plan (1) Pneumonia due to Serratia marcescens: Plan 1. Serratia marcenscens pneumonia.? Given necrotizing features, ordering CT chest w/o contrast to be done beginning of February 2023 and F/U with me. ?Further recommendations dependent on CT findings.? F/U with regular [facility] [facility] in [place] after she is stable to return to [place]. ?Recommend 2 total weeks of antibiotics.? Can transition to Augmentin, oral Levaquin. 2. Bronchiectasis with acute exacerbation.? Mucus plugging noted on CT.? Recommend continuing PEP and sodium chloride 0.9% nebs TID.? Needs a good pulmonary toilet. 3. Acute exacerbation of COPD.? AAT still pending.? @ [facility], would continue with DuoNeb TID ? QID at a minimum.? Would benefit from maintenance inhaler, PFT (if not done in [place]).? 4. Ehhbm-xe-rqysivz hypoxic respiratory failure.? @ baseline 2L/min ATC at rest. 5. Pulmonary cachexia with protein calorie malnutrition.? Healthy calorie intake. 6. Diabetes mellitus type 2 with steroid-induced hyperglycemia. Pre diabetes per patient.? Monitor with oral prednisone use. 7. Rheumatoid arthritis.? On DMARDs outpatient - Plaquenil and MTX held d/t acute illness. 8. E. coli UTI.? 9. Staphylococcus epidermidis ? blood culture.? Contaminant. 10. History of tobacco abuse.? Quit 2004. Subjective Subjective Interval history: She states I'm breathing a little better today. Pain mildly less. No hemoptysis. No new pulmonary complaints. Patient is to be discharged to the [facility]. Discussed with patient that I am recommending a F/U CT the beginning of February 2023 and F/U with me afterwards... Given the necrotizing features of the pneumonia, I do not recommend her waiting until she returns to [place], as that time is now unclear. She voiced understanding and agreement for F/U with me. Exam Constitutional Vital Signs, click to edit/add: Last Vital Signs Temp 97.5 F L 02/04/23 05:50 Pulse 63 02/04/23 05:53 Resp 18 02/04/23 05:50 BP 132/67 H 02/04/23 05:50 Pulse Ox 93 L 07/13/23 05:50 O2 Del Method Nasal Cannula 02/04/23 05:50 O2 Flow Rate 2 02/04/23 05:50 Documenting provider has reviewed patient's vital signs: yes Common normals: no apparent distress Other: Continues to be laying left lateral recumbent - states she is comfortable in this position. HENMT Other: Wearing nasal cannula. Mouth is dry, but no candidiasis observed. Chest Chest: symmetrical chest wall rise Respiratory Auscultation: crackles Laterality: left at the base and diminished lung sounds bilateral throughout Cardio Rate: regular rate Rhythm: regular rhythm GI Inspection: normal to inspection Extremity Other: Decreased muscle mass Neuro Motor exam: no tremor noted and no fasciculations Psych Attitude: calm Speech: normal speech
[2023-02-04] MEDS: GLIPIZIDE 5 MG TABLET 2.5 MG PO (08:11)
[2023-02-04] MEDS: POTASSIUM CHLORIDE 10 MEQ ER TABLET 20 MEQ PO (08:11)
[2023-02-04] MEDS: CARVEDILOL 3.125 MG TABLET 12.5 MG PO (08:11)
[2023-02-04] MEDS: HYDROXYCHLOROQUINE SULFATE 200 MG TABLET PO (08:11)
[2023-02-04] MEDS: PRASUGREL HCL 10 MG TABLET PO (08:11)
[2023-02-04] MEDS: SUCRALFATE 1 GM TABLET PO ×3 (08:11→15:32)
[2023-02-04] MEDS: POTASSIUM CHLORIDE 40 MEQ in 0.9 % SODIUM CHLORIDE 250 ML 67.5 MEQ IV (08:12)
[2023-02-04] MEDS: LOSARTAN POTASSIUM 50 MG TABLET PO (08:13)
[2023-02-04] MEDS: ENSURE HP 237 ML LIQUID PO (08:13)
[2023-02-04] MEDS: FOLIC ACID 1 MG TABLET PO (08:13)
[2023-02-04] MEDS: PANTOPRAZOLE SODIUM 40 MG VIAL IV (08:13)
[2023-02-04] MEDS: DILTIAZEM HCL 240 MG CAP.ER.24H PO (08:13)
[2023-02-04] MEDS: CELECOXIB 200 MG CAPSULE PO (08:13)
--- NOTE | 2023-02-04 09:09 | CM.NOTE ---
Rounds made with laura Montanez to discharge to [facility] today for skilled therapy.
--- NOTE | 2023-02-04 09:53 | P.DS_ITS ---
DS: Providers Provider Date of admission: 01/30/23 19:00 Primary care physician: Non-Staff Physician, Consults: 01/30/23 Consult to Dietitian Routine Reason For Exam: unintentional weight loss (>30#-3 years) 7# 1 wk 01/31/23 10:17 Occupational Therapy Eval and Treat Routine Physical Therapy Eval and Treat Routine 01/31/23 13:34 Consult to Pulmonology Routine Consulting Provider: Evan Dhillon DS: Diagnosis Discharge Diagnosis (1) Pneumonia due to Serratia marcescens: Plan Respiratory distress, uncontrolled hypertension, leukocytosis, thrombocythemia, acute hypoxic respiratory failures with acute exacerbation of oxygen dependent COPD secondary to left lower lobe pneumonia, resulting in dehydration with severe sepsis.? IV antibiotics, sputum culture, aerosols, consult to pulmonology, CT scan concerning for malignancy - Consult to cardiology, pulmonology -still waiting for final cultures Anemia - possible acute - -, hemoglobin better today Thrombocythemia - not critical --overall stable Aortic Ductus Aneurysm - 3cm - Unable to see on Ultrasound, will need to be followed with CT As an outpatient d Dehydration with elevated b/c -? -? kidney function? elevated slightly today Hyponatremia -? stable, continue to monitor Hyperphosphatemia - check levels in am Sever hypoalbuminemia - protein supplement Pancreatic cyst - check ca 14-9-ffligpm Diabetes - place on ISS Thoracic spine compression Fx - may need MRI to eval acuteness - with concern for malignancy - possible mets DS: Summary Hospital Course Hospital Course: Patient was admitted to the ICU with increasing shortness of breath and pneumonia. Suspicion for mass. Patient been having increasing hemoptysis. Patient did have positive sputum culture, the final that is still pending she also had an acute E. coli UTI. Her white blood cell count was elevated on admission and is improving that back down to normal today. Her kidney function is also improving. She has been able to be weaned down to 2 L. Her breathing is overall much improved. At this point patient just in need of rehab for treatment and can be followed up as an outpatient for the continued care of her pneumonia and COPD. Medications see list. Follow-up with PCP and pulmonology within the next week or so. Status at Discharge Functional status at discharge: uses cane/walker Overall status at discharge: patient is not back to baseline Time Spent with Patient Time attestation: Total time spent providing and/or coordinating discharge services: Exam Constitutional Vital Signs, click to edit/add: Last Vital Signs Temp 97.5 F L 02/04/23 05:50 Pulse 73 02/04/23 08:05 Resp 18 02/04/23 05:50 BP 132/67 H 02/04/23 05:50 Pulse Ox 93 L 02/04/23 05:50 O2 Del Method Nasal Cannula 02/04/23 05:50 O2 Flow Rate 2 02/04/23 05:50 Documenting provider has reviewed patient's vital signs: yes Common normals: no apparent distress Other: Continues to be laying left lateral recumbent - states she is comfortable in this position. [facility] Other: Wearing nasal cannula. Mouth is dry, but no candidiasis observed. Chest Chest: symmetrical chest wall rise Respiratory Auscultation: crackles Laterality: left at the base and diminished lung sounds bilateral throughout Cardio Rate: regular rate Rhythm: regular rhythm GI Inspection: normal to inspection Extremity Other: Decreased muscle mass Neuro Motor exam: no tremor noted and no fasciculations Psych Attitude: calm Speech: normal speech DS: Data Data Completed and Pending Labs on day of discharge: Labs from last 24 hours 02/04/23 02/03/23 02/03/23 04:51 20:46 16:10 WBC 4.2 RBC 3.87 L Hgb 10.9 L Hct 33.5 L MCV 86.6 MCH 28.2 MCHC 32.5 RDW 15.8 H Plt Count 222 MPV 9.0 L Neut % (Auto) 93.1 H Lymph % (Auto) 4.1 L [place] % (Auto) 1.4 L Eos % (Auto) 0.0 L Baso % (Auto) 0.2 Neut # (Auto) 3.9 Lymph # (Auto) 0.2 L [place] # (Auto) 0.1 L Eos # (Auto) 0.0 Baso # (Auto) 0.0 Abs Immat Gran (auto) 0.05 H Imm/Tot Granulo (auto) 1.2 H Sodium 135 L Potassium 2.8 L* Chloride 96 L Carbon Dioxide 36.2 H Anion Gap 5.6 BUN 46.0 H Creatinine 1.06 H Est GFR ( Amer) >60 Est GFR (Non-Af Amer) 51 L BUN/Creatinine Ratio 43.4 Glucose 149 H Calcium 8.0 L Phosphorus 3.4 Magnesium 2.0 Total Bilirubin 0.3 AST 19 ALT 22 Alkaline Phosphatase 44 L Total Protein 5.0 L Albumin 1.5 L Globulin 3.5 Albumin/Globulin Ratio 0.4 POC Glucose 130 H 194 H 02/03/23 02/03/23 11:17 11:15 WBC RBC Hgb Hct MCV MCH MCHC RDW Plt Count MPV Neut % (Auto) Lymph % (Auto) [place] % (Auto) Eos % (Auto) Baso % (Auto) Neut # (Auto) Lymph # (Auto) [place] # (Auto) Eos # (Auto) Baso # (Auto) Abs Immat Gran (auto) Imm/Tot Granulo (auto) Sodium Potassium Chloride Carbon Dioxide Anion Gap BUN Creatinine Est GFR ( Amer) Est GFR (Non-Af Amer) BUN/Creatinine Ratio Glucose Calcium Phosphorus Magnesium Total Bilirubin AST ALT Alkaline Phosphatase Total Protein Albumin Globulin Albumin/Globulin Ratio POC Glucose 384 H 401 H Preliminary micro results at discharge 01/30/23 17:34 Sputum Culture - Preliminary Sputum - Expectorated Sputum Serratia marcescens 01/30/23 17:27 - Preliminary Blood Staphylococcus epidermidis 01/30/23 17:33 Blood Culture Result 1 - Preliminary Blood NO GROWTH AT 36-48 HOURS. FINAL TO FOLLOW. Discharge Plan Discharge Disposition: Xfer SNF Condition: Fair Discharge Medications: New levofloxacin 500 mg tablet 500 mg PO DAILY 21 Days Qty: 21 0RF Continued albuterol sulfate 90 mcg/actuation HFA aerosol inhaler 2 puff INHALATION Q6H PRN (Reason: shortness of breath or wheezing) diltiazem HCl 240 mg capsule,extended release 24 hr 240 mg PO Q24H folic acid 1 mg tablet 1 mg PO DAILY carvedilol 3.125 mg tablet 3.125 mg PO Q12H glipizide 2.5 mg tablet extended release 24hr 2.5 mg PO DAILY losartan 50 mg tablet 50 mg PO DAILY hydroxychloroquine 200 mg tablet 200 mg PO DAILY methotrexate sodium 2.5 mg tablet 15 mg PO .weekly prasugrel 10 mg tablet 10 mg PO DAILY prednisone 5 mg tablet 5 mg PO DAILY rosuvastatin 20 mg tablet 20 mg PO DAILY Spiriva Respimat 2.5 mcg/actuation mist 2 puff INHALATION Q24H tramadol 50 mg tablet 50 mg PO Q4H PRN (Reason: pain) NAC 600 mg tablet 600 mg PO DAILY Forms: Portal Instructions
[2023-02-04 11:04] LABS: Glucometer 222 mg/dL (74-106)
--- NOTE | 2023-02-04 11:16 | REH.PTDLY ---
Physical Therapy Daily Note PT Daily Note/Assess Start: 02/03/23 11:27 Freq: Status: Active Protocol: Document 02/04/23 11:15 CINDY (Rec: 02/04/23 11:16 CINDY Zapata) Visit Not Completed Visit Not Completed Due to: Pt refusing Other Reason Visit Not Completed Pt continues to decline rx, states she sat up with the help of the bed earlier, but can't do anything as she gets too dizzy. Going to rehab today. Physical Therapy Daily Note/Assessment Time In 10:25 Time Out 10:26
[2023-02-04] MEDS: INSULIN ASPART 300 UNIT/3 ML PEN SUBQ (11:56)
--- NOTE | 2023-02-04 12:30 | SWNOTE1 ---
SW did speak with pt to encourage her to particpate with therapy, especially when she gets to [place]. SW explained if she does not medicare will not pay for very long. She did voice understanding and wants to get stronger.
[2023-02-05 13:08] LABS: Alpha-1-Antitrypsin, Serum 302 mg/dL (101-187)
== END 2023-02-04 16:40 | DRG 871 ==
LOC: ER 18:33 → MS 19:11 → ICU 21:55 → MS 02-02 17:06
PROVIDERS: Emergency Medicine; Internal Medicine; Admitting Provider Internal Medicine; Emergency Provider Emergency Medicine; Visit Provider Family Medicine
DX: A41.53 Sepsis due to Serratia (principal); J15.6 Pneumonia due to other Gram-negative bacteria; J96.21 Acute and chronic respiratory failure with hypoxia; J85.0 Gangrene and necrosis of lung; E87.1 Hypo-osmolality and hyponatremia; K86.2 Cyst of pancreas; M48.54XA Collapsed vertebra, not elsewhere classified, thoracic region, initial encounter for fracture; R04.2 Hemoptysis; N39.0 Urinary tract infection, site not specified; Q25.0 Patent ductus arteriosus; D84.9 Immunodeficiency, unspecified; J47.1 Bronchiectasis with (acute) exacerbation; R64 Cachexia; E46 Unspecified protein-calorie malnutrition; J43.9 Emphysema, unspecified; M06.9 Rheumatoid arthritis, unspecified; E11.22 Type 2 diabetes mellitus with diabetic chronic kidney disease; I12.9 Hypertensive chronic kidney disease with stage 1 through stage 4 chronic kidney disease, or unspecified chronic kidney disease; N18.30 Chronic kidney disease, stage 3 unspecified; R65.20 Severe sepsis without septic shock; Z99.81 Dependence on supplemental oxygen; E86.0 Dehydration; D75.839 Thrombocytosis, unspecified; D64.9 Anemia, unspecified; E83.39 Other disorders of phosphorus metabolism; E88.09 Other disorders of plasma-protein metabolism, not elsewhere classified; B96.20 Unspecified Escherichia coli [E. coli] as the cause of diseases classified elsewhere; I71.22 Aneurysm of the aortic arch, without rupture; R73.9 Hyperglycemia, unspecified; T38.0X5A Adverse effect of glucocorticoids and synthetic analogues, initial encounter; Z79.84 Long term (current) use of oral hypoglycemic drugs; Z79.52 Long term (current) use of systemic steroids; Z79.891 Long term (current) use of opiate analgesic; Z79.899 Other long term (current) drug therapy; Z79.631 Long term (current) use of antimetabolite agent; Z83.3 Family history of diabetes mellitus; Z82.49 Family history of ischemic heart disease and other diseases of the circulatory system; Z87.891 Personal history of nicotine dependence
CPT/HCPCS: 36415; 36430; 51702; 71045; 71275; 80048; 80053; 80076; 81003; 81015; 82103; 82104; 82948; 83735; 84100; 85025; 86301; 86850; 86900; 86901; 86920; 87040; 87070; 87086; 87150; 87186; 87205; 87635; 87811; 93005; 93306; 94640; 94667; 94668; 94761; 96365; 96366; 96367; 96368; 96372; 96375; 96376; 97161; 97165; 99285; G0328; J0456; J2920; J2930; J3480; P9016; Q3014; Q9967

== ENCOUNTER 2023-02-25 12:40 | Outpatient (OUT) | payer MEDICARE, SELFPAY ==
--- NOTE | 2023-02-25 12:50 | CT_ITS ---
[address] [address] Patient Name: LAQUITA CASTRO MRN: [id number] date: 1950 Sex: F Assigned Patient Location: CT Current Patient Location: Accession/Order Number: [id number] Exam Date: 02/25/2023 13:00 Report Date: 02/26/2023 06:16 At the request of: RAMIN SURESH Procedure: CT chest wo con EXAMINATION: CT chest wo con HISTORY: Pulmonary edema J81.6, Gangrene and necrosis of lung J85.0 ; follow-up pneumonia COMPARISON: CTA chest 01/30/2023 TECHNIQUE: Multi-planar CT images were obtained without and/or with IV contrast as indicated by examination type. Axial, Coronal, and Sagittal images. Dose reduction techniques were achieved by using automated exposure control and/or adjustment of mA and/or kV according to patient size and/or use of iterative reconstruction technique. FINDINGS: LUNGS: Prominent areas of dense patchy infiltrate within left lung and partial consolidation of left lower lobe superior segment. A few patchy opacities scattered within right lung. Marked bronchiectasis bilaterally with scattered areas of mucous plugging. Marked emphysematous changes. PLEURA: Trace amount of pleural fluid bilaterally. No pneumothorax. VASCULATURE: No abnormality. AINSLEY: No mass or adenopathy. MEDIASTINUM: No mass or adenopathy. CARDIAC: Atherosclerotic coronary artery disease. No pericardial effusion. AORTA: Atherosclerotic disease; no aneurysm. CHEST WALL: No mass or axillary adenopathy. BONES: Stable marked degenerative disc disease of lower cervical spine. Stable mild superior endplate compression fracture of T7 and T12. LIMITED ABDOMEN: Large, benign-appearing renal cysts bilaterally, 6.5 cm in diameter on right. Limited images of the upper abdomen. OTHER: Negative. CT/CT chest wo con IMPRESSION: 1. Marked left, mild right pulmonary infiltrates suspicious for pneumonia; moderately improved compared to prior study. 2. Chronic marked bronchiectasis and marked emphysematous changes. 3. Tiny bilateral pleural effusions; new since prior study. 4. Stable degenerative changes and mild compression fractures of cervical and thoracic spine. Electronically authenticated by: JONATHON GUEVARA Date: 02/26/2023 06:16
== END 2023-02-25 12:41 | disposition home or self-care (01) ==
PROVIDERS: Visit Provider Internal Medicine
DX: J15.6 Pneumonia due to other Gram-negative bacteria (principal); J85.0 Gangrene and necrosis of lung
CPT/HCPCS: 71250